=== PATIENT | female | born 1955 | race Two or more races ===

== ENCOUNTER 2018-08-10 18:18 | Inpatient (IN) | payer BC, OTHER ==
[~2018-08-10] VITALS: Ht 157.5 cm; Wt 83.4 kg
[2018-08-10 18:48] LABS: Basophils # (auto) 0 uL; Basophils % (auto) 0.6 % (0.0-2.0); Eosinophils # (auto) 0 uL; Hematocrit 36.9 % (36.0-46.0); Hemoglobin 13.2 g/dL (12.2-16.2); Lymphocytes # (auto) 0.8 uL; Lymphocytes % (auto) 16.6 % (10.0-50.0); Mean Corpuscular Hgb Conc. 35.9 g/dL (32.0-36.0); Mean Corpuscular Volume 83.7 fL (80.0-100.0); Monocytes # (auto) 0.3 uL; Monocytes % (auto) 6.8 % (0.0-12.0); Neutrophils # (auto) 3.5 uL; Platelet Count (auto) 292 10^3/uL (140-450); Red Blood Cells 4.41 10^6/uL (4.0-5.20); Red Cell Distribution Width 13.9 % (11.8-14.3); White Blood Cell 4.6 10^3/uL (4.4-10.8)
[2018-08-10 19:08] LABS: Alanine Aminotransferase 36 U/L (13-56); Albumin 3.7 g/dL (3.4-5.0); Anion Gap 10 (5-15); Aspartate Aminotransferase 42 U/L (15-37); BUN/Creatinine Ratio 15.9; Blood Urea Nitrogen 11 mg/dL (7-18); Calcium 8.3 mg/dL (8.5-10.1); Carbon Dioxide 27 mmol/L (21-32); Chloride 81 mmol/L (98-107); GFR African American > 60 mL/min; GFR Non-African American > 60 mL/min; Glucose 104 mg/dL (74-106); Potassium 3.5 mmol/L (3.5-5.1)
[2018-08-10 19:12] LABS: Alkaline Phosphatase 85 U/L (45-117); Bilirubin, Total 0.5 mg/dL (0.2-1.0); Total Protein 7.9 g/dL (6.4-8.2)
[2018-08-10 19:17] LABS: Sodium 118 mmol/L (136-145)
[2018-08-10 19:18] LABS: Urine Bacteria NONE SEEN /hpf (None Seen); Urine Blood TRACE /uL (Negative); Urine Mucus FEW (None Seen); Urine Specific Gravity 1.021 (1.001-1.035); Urine WBC 1 /hpf (0 - 5)
[2018-08-10] MEDS ORDERED: SODIUM CHLORIDE 0.9% 1,000 ML IV ONE (20:00)
[2018-08-10] MEDS ORDERED: MORPHINE SULFATE 10 MG/ML INJ 1ML SDV IV ONE (20:00)
[2018-08-10] MEDS ORDERED: ONDANSETRON HCL 4 MG/2 ML VIAL IV ONE (20:00)
[2018-08-10] MEDS ORDERED: ACETAMINOPHEN 500 MG TAB PO PRN (20:45)
[2018-08-10] MEDS ORDERED: ONDANSETRON HCL 4 MG/2 ML VIAL IV PRN (20:45)
[2018-08-10] MEDS ORDERED: LEVOFLOXACIN 750MG 150 ML IV ONE (20:45)
[2018-08-10] MEDS ORDERED: MORPHINE SULFATE 10 MG/ML INJ 1ML SDV IV PRN (20:45)
[2018-08-10] MEDS ORDERED: SODIUM CHLORIDE 0.9% 1,000 ML IV SCH (20:45)
[2018-08-10 21:29] VITALS: BP 133/79
[2018-08-10] MEDS: SODIUM CHLORIDE 0.9% 1,000 ML IV SCH (21:30)
[2018-08-10] MEDS ORDERED: SODIUM CHL 3% 500 ML IV ONE (22:45)
--- NOTE | 2018-08-10 23:15 | NUR ---
Telemetry admit from ER ARTURO KAMINSKI admitted to Telemetry unit after SBAR received. Patient oriented to Cristofer swann RN, unit, room 214, bed B, and unit policies regarding patient care and visiting hours. Patient now on continuous telemetry monitoring, tele box #40 and telemetry reading on arrival to unit is SR 78 with BBB. Patient placed on bedside oxygen, weighed by bedscale and encouraged to call if they need something. All questions and concerns addressed, patient verbalized understanding.
[2018-08-10] MEDS: IPRATROPIUM BROM 0.5 MG/2.5ML INH SOL NEB SCH (23:23)
[2018-08-10] MEDS: ALBUTEROL SULF 2.5 MG/0.5ML(0.5%) NEB SOLN NEB SCH (23:23)
[2018-08-11] VITALS (7 sets, daily range): BP systolic 104–127; BP diastolic 56–66
[2018-08-11] MEDS ORDERED: LISI20TA10 PO (01:02)
[2018-08-11] MEDS: SODIUM CHLORIDE 0.9% 1,000 ML IV SCH ×2 (05:30→14:58)
[2018-08-11] MEDS: IPRATROPIUM BROM 0.5 MG/2.5ML INH SOL NEB SCH ×3 (06:06→19:10)
[2018-08-11] MEDS: ALBUTEROL SULF 2.5 MG/0.5ML(0.5%) NEB SOLN NEB SCH ×3 (06:06→19:10)
[2018-08-11 06:44] LABS: Basophils # (auto) 0 uL; Basophils % (auto) 0.8 % (0.0-2.0); Eosinophils # (auto) 0 uL; Hematocrit 35.5 % (36.0-46.0); Hemoglobin 12.6 g/dL (12.2-16.2); Lymphocytes % (auto) 23.5 % (10.0-50.0); Mean Corpuscular Hemoglobin 29.8 pg (28.0-32.0); Mean Corpuscular Hgb Conc. 35.5 g/dL (32.0-36.0); Mean Corpuscular Volume 84.1 fL (80.0-100.0); Monocytes # (auto) 0.3 uL; Neutrophils # (auto) 2.7 uL; Neutrophils % (auto) 67.7 % (37.0-80.0); Nucleated Red Blood Cells % 0.2 %; Platelet Count (auto) 286 10^3/uL (140-450); Red Blood Cells 4.22 10^6/uL (4.0-5.20); Red Cell Distribution Width 13.4 % (11.8-14.3); White Blood Cell 4.1 10^3/uL (4.4-10.8)
[2018-08-11 07:05] LABS: Chloride 90 mmol/L (98-107); Sodium 126 mmol/L (136-145)
[2018-08-11 07:11] LABS: Anion Gap 12 (5-15); BUN/Creatinine Ratio 16.7; Blood Urea Nitrogen 11 mg/dL (7-18); Calcium 7.8 mg/dL (8.5-10.1); Carbon Dioxide 24 mmol/L (21-32); GFR African American > 60 mL/min; GFR Non-African American > 60 mL/min; Glucose 91 mg/dL (74-106)
--- NOTE | 2018-08-11 07:25 | NUR ---
Morning note Report received and bedside handoff completed. Patient observed resting in bed without S/S of distress. Patient oriented to this RN and POC. Patient verbalized understanding to call if needing assistance.
--- NOTE | 2018-08-11 08:12 | NUR ---
Surgical MD called Dr. Lora called this RN to discuss patient's diagnosis and reason for consult. CT Abdomen/Pelvis results read to physician. He stated he would come see her later.
[2018-08-11] MEDS ORDERED: cefTRIAXone 1GM/50ML D5W 50 ML IV SCH (09:00)
[2018-08-11] MEDS ORDERED: AZITHROMYCIN 500MG/ 250ML 250 ML IV SCH (10:00)
[2018-08-11] MEDS: DOXYCYCLINE 100MG/250ML 250 ML IV SCH ×2 (10:28→21:50)
[2018-08-11] MEDS: LISINOPRIL 10 MG TAB PO SCH (10:28)
--- NOTE | 2018-08-11 10:30 | NUR ---
Dr. Ivan Love called and stated he would be seeing the patient to let Dr. Lora know. Page sent to Dr. Lora.
--- NOTE | 2018-08-11 14:15 | NUR ---
Surgical consult complete Dr. Love stated patient has a periumbilical hernia partially able to reinsert. Ice pack and abdominal binder applied for patient. He stated she should follow up outpatient with him and GI due to right upper quadrant pain resolved currently.
--- NOTE | 2018-08-11 14:20 | NUR ---
Rounded Dr. Storm rounded on patient and notified of patients potassium and sodium level. stated he would replace potassium and decrease fluids as low sodium related to pneumonia. Patient can now start diet. Orders observed.
[2018-08-11] MEDS ORDERED: POTASSIUM CHL 20 Meq TABLET PO ONE (14:30)
[2018-08-11] MEDS ORDERED: TEMAZEPAM 15 MG CAP PO PRN (16:30)
[2018-08-11] MEDS: methylPREDNISolone SOD SUCC 40 MG/ML VL IV SCH (18:37)
[2018-08-11] MEDS: BUDESONIDE (INHALATION) 0.5 MG/2 ML NEB NEB SCH (19:10)
[2018-08-12] MEDS: IPRATROPIUM BROM 0.5 MG/2.5ML INH SOL NEB SCH ×3 (00:38→11:43)
[2018-08-12] MEDS: ALBUTEROL SULF 2.5 MG/0.5ML(0.5%) NEB SOLN NEB SCH ×3 (00:38→11:43)
[2018-08-12] MEDS: methylPREDNISolone SOD SUCC 40 MG/ML VL IV SCH ×2 (01:36→06:00)
[2018-08-12] MEDS: SODIUM CHLORIDE 0.9% 1,000 ML IV SCH (03:35)
[2018-08-12 04:00] VITALS: BP 124/73
[2018-08-12 05:40] LABS: Anion Gap 9 (5-15); BUN/Creatinine Ratio 16.7; Blood Urea Nitrogen 10 mg/dL (7-18); Calcium 8.1 mg/dL (8.5-10.1); Carbon Dioxide 23 mmol/L (21-32); Chloride 99 mmol/L (98-107); GFR African American > 60 mL/min; GFR Non-African American > 60 mL/min; Glucose 131 mg/dL (74-106); Magnesium 2.7 mg/dL (1.6-2.6); Potassium 3.8 mmol/L (3.5-5.1); Sodium 131 mmol/L (136-145)
[2018-08-12] MEDS: BUDESONIDE (INHALATION) 0.5 MG/2 ML NEB NEB SCH (06:26)
--- NOTE | 2018-08-12 07:02 | NUR ---
Morning note Report received and bedside handoff completed. Patient observed resting in bed without S/S of distress. Patient reoriented to this RN and POC discussed. Patient stated she is feeling better this morning, but scared to eat because she does not want her stomach to start hurting. She stated it has not been hurting at all. This RN notified her to take it slow and if she feels like any symptoms are starting to back down. Patient verbalized understanding and knows to call if needing assistance.
[2018-08-12 08:30] VITALS: BP 110/55
[2018-08-12] MEDS: DOXYCYCLINE 100MG/250ML 250 ML IV SCH (09:40)
[2018-08-12] MEDS: LISINOPRIL 10 MG TAB PO SCH (09:40)
[2018-08-12 12:30] VITALS: BP 120/59
[2018-08-12 14:27] VITALS: BP 110/55
--- NOTE | 2018-08-12 15:01 | NUR ---
Discharge Discharge instructions reviewed with patient. All questions and concerns addressed. IV discontinued without complication and telemetry returned to [facility]
== END 2018-08-12 15:14 | disposition home or self-care (01) | DRG 394 ==
LOC: ER 18:18 → TELE 21:17 → TELE-CENTR 23:06
PROVIDERS: ADMIT Nurse Practitioner Family; ATTEND Hospitalist
DX: K42.9 Umbilical hernia without obstruction or gangrene (principal); K56.3 Gallstone ileus; E87.1 Hypo-osmolality and hyponatremia; I10 Essential (primary) hypertension; J45.909 Unspecified asthma, uncomplicated; J20.9 Acute bronchitis, unspecified; K76.0 Fatty (change of) liver, not elsewhere classified; K57.30 Diverticulosis of large intestine without perforation or abscess without bleeding; N28.1 Cyst of kidney, acquired; Z88.5 Allergy status to narcotic agent; Z83.3 Family history of diabetes mellitus
CPT/HCPCS: 36415; 71045; 74176; 76705; 80048; 80053; 81001; 83735; 84295; 84484; 85025; 87040; 87804; 93005; 94640; 94761; 96361; 96365; 96375; G0378; J1956; J2405; J3490

== ENCOUNTER 2018-09-26 14:06 | Emergency (ER) | payer OTHER ==
[~2018-09-26] VITALS: Ht 157.5 cm; Wt 74.8 kg
[~2018-09-26 14:06] MED LIST: LISI20TA10 PO
[2018-09-26] MEDS ORDERED: MORPHINE SULFATE 4 MG/ML SYR/VIAL IV ONE (14:45)
[2018-09-26] MEDS ORDERED: ONDANSETRON HCL 4 MG/2 ML VIAL IV ONE (14:45)
[2018-09-26 15:17] LABS: Basophils # (auto) 0.1 uL; Basophils % (auto) 1.1 % (0.0-2.0); Eosinophils # (auto) 0.1 uL; Hematocrit 41.9 % (36.0-46.0); Lymphocytes # (auto) 1.4 uL; Lymphocytes % (auto) 23.1 % (10.0-50.0); Mean Corpuscular Hemoglobin 29.4 pg (28.0-32.0); Mean Corpuscular Hgb Conc. 33.5 g/dL (32.0-36.0); Mean Corpuscular Volume 87.8 fL (80.0-100.0); Monocytes # (auto) 0.5 uL; Monocytes % (auto) 7.6 % (0.0-12.0); Neutrophils % (auto) 67.2 % (37.0-80.0); Nucleated Red Blood Cells % 0.1 %; Platelet Count (auto) 341 10^3/uL (140-450); Red Blood Cells 4.78 10^6/uL (4.0-5.20); Red Cell Distribution Width 14.8 % (11.8-14.3); White Blood Cell 5.9 10^3/uL (4.4-10.8)
[2018-09-26 15:29] LABS: Albumin 4.3 g/dL (3.4-5.0); BUN/Creatinine Ratio 15.3; Calcium 9.5 mg/dL (8.5-10.1); Magnesium 2.4 mg/dL (1.6-2.6)
[2018-09-26 15:33] LABS: Bilirubin, Total 0.3 mg/dL (0.2-1.0)
[2018-09-26 16:25] VITALS: BP 154/87
[2018-09-26 16:54] LABS: Urine Bacteria FEW /hpf (None Seen); Urine Blood Negative /uL (Negative); Urine Mucus FEW (None Seen); Urine Specific Gravity 1.008 (1.001-1.035); Urine WBC 4 /hpf (0 - 5)
== END 2018-09-26 16:31 | disposition home or self-care (01) ==
LOC: ER 14:10
DX: R10.11 Right upper quadrant pain (principal); M54.9 Dorsalgia, unspecified; I10 Essential (primary) hypertension
CPT/HCPCS: 36415; 74176; 80053; 81001; 82150; 83690; 83735; 85025; 94761; 96374; 96375; 99284; J2270; J2405

== ENCOUNTER → 2022-05-02 | Outpatient (CLI) | payer OTHER ==
[~2022-05-02] MED LIST changes: -LISI20TA10 PO; +LISI20TA33 PO
[2022-05-02 09:27] LABS: Basophils # (auto) 0.1 10 ^3/uL (0-0.2); Basophils % (auto) 1.4 % (0.0-2.0); Eosinophils # (auto) 0.1 10 ^3/uL (0-0.8); Eosinophils % (auto) 1.7 % (0.0-7.0); Hematocrit 38.5 % (36.0-46.0); Hemoglobin 12.9 g/dL (12.2-16.2); Lymphocytes # (auto) 1.4 10 ^3/uL (0.4-5.4); Lymphocytes % (auto) 27.8 % (10.0-50.0); Mean Corpuscular Hemoglobin 28.8 pg (28.0-32.0); Mean Corpuscular Hgb Conc. 33.6 g/dL (32.0-36.0); Mean Corpuscular Volume 85.8 fL (80.0-100.0); Monocytes # (auto) 0.4 10 ^3/uL (0-1.3); Monocytes % (auto) 8.7 % (0.0-12.0); Neutrophils # (auto) 3.1 10 ^3/uL (1.6-8.6); Neutrophils % (auto) 60.4 % (37.0-80.0); Red Blood Cells 4.49 10^6/uL (4.0-5.20); Red Cell Distribution Width 13.6 % (11.8-14.3); White Blood Cell 5.2 10^3/uL (4.4-10.8)
[2022-05-02 10:15] LABS: Albumin 3.9 g/dL (3.4-5.0); Calcium 9.7 mg/dL (8.5-10.1); Potassium 4.6 mmol/L (3.5-5.1)
[2022-05-02 10:22] LABS: BUN/Creatinine Ratio 20.6; Bilirubin, Total 0.4 mg/dL (0.2-1.0); Total Protein 7.4 g/dL (6.4-8.2)
== END | disposition home or self-care (01) ==
LOC: LAB 08:43
PROVIDERS: ATTEND Internal Medicine
DX: Z12.11 Encounter for screening for malignant neoplasm of colon (principal); I10 Essential (primary) hypertension; R73.03 Prediabetes
CPT/HCPCS: 36415; 80053; 80061; 82043; 82306; 83036; 85025

== ENCOUNTER → 2022-05-31 | Outpatient (CLI) | payer OTHER | END | disposition home or self-care (01) | LOC: LAB 14:09 | PROVIDERS: ATTEND Internal Medicine | DX: Z12.11 Encounter for screening for malignant neoplasm of colon (principal); I10 Essential (primary) hypertension; R73.03 Prediabetes | CPT/HCPCS: 82270 ==

== ENCOUNTER 2022-08-03 09:47 | Inpatient (IN) | payer OTHER ==
[~2022-08-03] VITALS: Ht 162.6 cm; Wt 77.1 kg
[2022-08-03] MEDS ORDERED: IPRATROPIUM BROM 0.5 MG/2.5ML INH SOL NEB ONE (10:30)
[2022-08-03] MEDS ORDERED: ALBUTEROL SULF 2.5 MG/0.5ML(0.5%) NEB SOLN NEB ONE ×2 (10:30→15:15)
[2022-08-03] MEDS ORDERED: AZITHROMYCIN 500MG/ 250ML 250 ML IV ONE (10:30)
[2022-08-03] MEDS ORDERED: cefTRIAXone 1GM/50ML D5W 50 ML IV ONE (10:30)
[2022-08-03] MEDS ORDERED: ZINC SULFATE 220mg CAP or TAB PO ONE (10:30)
[2022-08-03] MEDS ORDERED: methylPREDNISolone SOD SUCC 125 MG/2 ML VL IV ONE (10:30)
[2022-08-03] MEDS ORDERED: ALBUTEROL MEDNEB 2.5 mg/3ml NEB ONE ×4 (10:31→21:44)
[2022-08-03 10:33] LABS: Basophils # (auto) 0 10 ^3/uL (0-0.2); Basophils % (auto) 0.1 % (0.0-2.0); Eosinophils # (auto) 0 10 ^3/uL (0-0.8); Hematocrit 39.4 % (36.0-46.0); Hemoglobin 13.3 g/dL (12.2-16.2); Lymphocytes # (auto) 1.6 10 ^3/uL (0.4-5.4); Lymphocytes % (auto) 10.5 % (10.0-50.0); Mean Corpuscular Hemoglobin 29.3 pg (28.0-32.0); Mean Corpuscular Hgb Conc. 33.8 g/dL (32.0-36.0); Mean Corpuscular Volume 86.5 fL (80.0-100.0); Monocytes # (auto) 0.5 10 ^3/uL (0-1.3); Monocytes % (auto) 3.1 % (0.0-12.0); Neutrophils # (auto) 12.8 10 ^3/uL (1.6-8.6); Neutrophils % (auto) 86.3 % (37.0-80.0); Nucleated Red Blood Cells % 0.2 %; Red Blood Cells 4.56 10^6/uL (4.0-5.20); Red Cell Distribution Width 13.9 % (11.8-14.3); White Blood Cell 14.8 10^3/uL (4.4-10.8)
[2022-08-03 10:46] LABS: Albumin 4.1 g/dL (3.4-5.0); Calcium 9.4 mg/dL (8.5-10.1); Potassium 4.4 mmol/L (3.5-5.1)
[2022-08-03 10:50] LABS: BUN/Creatinine Ratio 23.2; Bilirubin, Total 0.5 mg/dL (0.2-1.0); Total Protein 7.5 g/dL (6.4-8.2)
[2022-08-03] MEDS ORDERED: ONDANSETRON HCL 4 MG/2 ML VIAL IV ONE (13:15)
[2022-08-03 13:43] LABS: Urine Bacteria NONE SEEN /hpf (None Seen); Urine Blood Negative /uL (Negative); Urine Mucus FEW (None Seen); Urine WBC 3 /hpf (0 - 5)
[2022-08-03] MEDS ORDERED: ONDANSETRON HCL 4 MG/2 ML VIAL IV PRN (14:15)
[2022-08-03] MEDS ORDERED: MAALOX PLUS or MAALOX 30 ML PO PRN (14:15)
[2022-08-03] MEDS ORDERED: DOCUSATE SOD 100 MG CAP PO PRN (14:15)
[2022-08-03] MEDS ORDERED: TEMAZEPAM 15 MG CAP PO PRN (14:15)
[2022-08-03] MEDS ORDERED: LORazepam 0.5 MG TAB PO PRN (14:15)
[2022-08-03] MEDS ORDERED: ACETAMINOPHEN 325 MG TAB PO PRN (14:15)
[2022-08-03] MEDS ORDERED: MAGNESIUM SULFATE 1GM/100ML 100 ML IV ONE (15:15)
[2022-08-03] MEDS: SODIUM CHLORIDE 0.9% 1,000 ML IV SCH (15:35)
[2022-08-03] MEDS: IPRATROPIUM BROM 0.5 MG/2.5ML INH SOL NEB SCH ×2 (21:25→23:52)
[2022-08-03] MEDS: ALBUTEROL SULF 2.5 MG/0.5ML(0.5%) NEB SOLN NEB SCH ×2 (21:25→23:52)
[2022-08-03] MEDS: methylPREDNISolone SOD SUCC 40 MG/ML VL IV SCH (21:44)
[2022-08-03 23:45] VITALS: BP 141/80
[2022-08-04] VITALS (8 sets, daily range): BP systolic 141–165; BP diastolic 73–84
[2022-08-04] MEDS ORDERED: BIOT10004 PO (01:26)
[2022-08-04] MEDS ORDERED: MONT-8 PO (01:26)
[2022-08-04] MEDS ORDERED: CETI-83 PO (01:26)
[2022-08-04] MEDS ORDERED: FLUT0.05 NAS (01:26)
[2022-08-04] MEDS ORDERED: CYAN1TAB14 PO (01:26)
[2022-08-04] MEDS ORDERED: ALBU2TAB4 INH (01:26)
[2022-08-04] MEDS: SODIUM CHLORIDE 0.9% 1,000 ML IV SCH ×2 (04:34→18:31)
[2022-08-04 05:48] LABS: Basophils # (auto) 0 10 ^3/uL (0-0.2); Eosinophils # (auto) 0 10 ^3/uL (0-0.8); Hematocrit 36.4 % (36.0-46.0); Hemoglobin 12.3 g/dL (12.2-16.2); Lymphocytes # (auto) 1.5 10 ^3/uL (0.4-5.4); Mean Corpuscular Hemoglobin 29.1 pg (28.0-32.0); Mean Corpuscular Hgb Conc. 33.8 g/dL (32.0-36.0); Mean Corpuscular Volume 86.1 fL (80.0-100.0); Monocytes # (auto) 0.3 10 ^3/uL (0-1.3); Monocytes % (auto) 3.1 % (0.0-12.0); Neutrophils # (auto) 7.5 10 ^3/uL (1.6-8.6); Neutrophils % (auto) 80.9 % (37.0-80.0); Red Blood Cells 4.22 10^6/uL (4.0-5.20); Red Cell Distribution Width 14.1 % (11.8-14.3); White Blood Cell 9.3 10^3/uL (4.4-10.8)
[2022-08-04] MEDS ORDERED: ALBUTEROL MEDNEB 2.5 mg/3ml NEB ONE ×5 (06:02→21:37)
[2022-08-04 06:05] LABS: Potassium 4.7 mmol/L (3.5-5.1)
[2022-08-04 06:10] LABS: BUN/Creatinine Ratio 32.2; Calcium 9.1 mg/dL (8.5-10.1)
[2022-08-04] MEDS: ALBUTEROL SULF 2.5 MG/0.5ML(0.5%) NEB SOLN NEB SCH ×5 (06:22→22:06)
[2022-08-04] MEDS: IPRATROPIUM BROM 0.5 MG/2.5ML INH SOL NEB SCH ×5 (06:22→22:06)
[2022-08-04] MEDS: cefTRIAXone 1GM/50ML D5W 50 ML IV SCH (09:41)
[2022-08-04] MEDS: methylPREDNISolone SOD SUCC 40 MG/ML VL IV SCH ×2 (09:41→20:19)
[2022-08-04] MEDS: AZITHROMYCIN 500MG/ 250ML 250 ML IV SCH (10:00)
[2022-08-04] MEDS ORDERED: guaiFENesin-CODEINE Liq 5 ML UD PO PRN (12:00)
[2022-08-04] MEDS ORDERED: LISINOPRIL 10 MG TAB PO ONE ×2 (12:00→17:00)
[2022-08-04] MEDS ORDERED: guaiFENesin 200 MG/10 ML UD PO PRN (19:45)
[2022-08-04] MEDS: BUDESONIDE (INHALATION) 0.5 MG/2 ML NEB NEB SCH (22:07)
[2022-08-05] VITALS (7 sets, daily range): BP systolic 129–168; BP diastolic 64–84
[2022-08-05] MEDS ORDERED: ALBUTEROL MEDNEB 2.5 mg/3ml NEB ONE ×5 (06:01→21:48)
[2022-08-05] MEDS: ALBUTEROL SULF 2.5 MG/0.5ML(0.5%) NEB SOLN NEB SCH ×5 (06:38→22:30)
[2022-08-05] MEDS: IPRATROPIUM BROM 0.5 MG/2.5ML INH SOL NEB SCH ×5 (06:38→22:30)
[2022-08-05] MEDS: BUDESONIDE (INHALATION) 0.5 MG/2 ML NEB NEB SCH ×2 (06:39→22:30)
[2022-08-05] MEDS ORDERED: LISINOPRIL 10 MG TAB PO SCH (10:00)
[2022-08-05] MEDS: AZITHROMYCIN 500MG/ 250ML 250 ML IV SCH (10:00)
[2022-08-05] MEDS: cefTRIAXone 1GM/50ML D5W 50 ML IV SCH (10:25)
[2022-08-05] MEDS: methylPREDNISolone SOD SUCC 40 MG/ML VL IV SCH ×2 (10:25→21:52)
[2022-08-05] MEDS: CHOLECALCIFEROL (VITD3) 2,000 UNIT CAP/TAB PO SCH (10:25)
[2022-08-05] MEDS: ZINC SULFATE 220mg CAP or TAB PO SCH (10:25)
[2022-08-05] MEDS: ASCORBIC ACID 500 MG TAB PO SCH (10:26)
[2022-08-05] MEDS: LISINOPRIL 10 MG TAB PO SCH (10:27)
[2022-08-05] MEDS: SODIUM CHLORIDE 0.9% 1,000 ML IV SCH (10:28)
[2022-08-05] MEDS ORDERED: METOPROLOL TARTRATE 50 MG TAB PO ONE (13:30)
[2022-08-05] MEDS: METOPROLOL TARTRATE 50 MG TAB PO SCH (21:53)
[2022-08-05] MEDS ORDERED: ZOLPIDEM TARTRATE 5 MG TAB PO PRN (22:00)
[2022-08-06 04:41] VITALS: BP 165/80
[2022-08-06 06:15] VITALS: BP 151/71
[2022-08-06] MEDS ORDERED: ALBUTEROL MEDNEB 2.5 mg/3ml NEB ONE ×3 (06:49→11:15)
[2022-08-06] MEDS: IPRATROPIUM BROM 0.5 MG/2.5ML INH SOL NEB SCH ×2 (07:05→11:19)
[2022-08-06] MEDS: ALBUTEROL SULF 2.5 MG/0.5ML(0.5%) NEB SOLN NEB SCH ×2 (07:05→11:18)
[2022-08-06 08:19] VITALS: BP 160/80
[2022-08-06] MEDS: cefTRIAXone 1GM/50ML D5W 50 ML IV SCH (09:22)
[2022-08-06] MEDS: methylPREDNISolone SOD SUCC 40 MG/ML VL IV SCH (09:22)
[2022-08-06] MEDS: ASCORBIC ACID 500 MG TAB PO SCH (09:23)
[2022-08-06] MEDS: ZINC SULFATE 220mg CAP or TAB PO SCH (09:23)
[2022-08-06] MEDS: CHOLECALCIFEROL (VITD3) 2,000 UNIT CAP/TAB PO SCH (09:23)
[2022-08-06] MEDS: LISINOPRIL 10 MG TAB PO SCH (09:24)
[2022-08-06] MEDS: METOPROLOL TARTRATE 50 MG TAB PO SCH (09:24)
[2022-08-06] MEDS: AZITHROMYCIN 500MG/ 250ML 250 ML IV SCH (10:00)
[2022-08-06] MEDS ORDERED: AZIT500T66 PO (10:33)
[2022-08-06] MEDS ORDERED: ZINC220C10 PO (10:33)
[2022-08-06] MEDS ORDERED: CHOL20009 PO (10:33)
[2022-08-06] MEDS ORDERED: METO-158 PO (10:33)
[2022-08-06] MEDS ORDERED: ASCO500C49 PO (10:33)
[2022-08-06] MEDS ORDERED: PRED20TA2 PO (10:35)
[2022-08-06] MEDS: BUDESONIDE (INHALATION) 0.5 MG/2 ML NEB NEB SCH (11:18)
[2022-08-06 12:21] VITALS: BP_SYST 164; BP_SYST 166; BP_DIAS 79; BP_DIAS 85
[2022-08-06 13:08] VITALS: BP 166/85
== END 2022-08-06 14:50 | disposition home or self-care (01) | DRG 193 ==
LOC: ER 09:47 → EEVIPCON 09:47 → TELE 14:21 → TELE-EAST 22:23
PROVIDERS: ADMIT Hospitalist; ATTEND Family Medicine
DX: J18.9 Pneumonia, unspecified organism (principal); J96.01 Acute respiratory failure with hypoxia; N39.0 Urinary tract infection, site not specified; E86.0 Dehydration; G47.00 Insomnia, unspecified; I10 Essential (primary) hypertension; E66.9 Obesity, unspecified; J45.909 Unspecified asthma, uncomplicated; Z20.822 Contact with and (suspected) exposure to COVID-19; Z86.16 Personal history of COVID-19; Z83.3 Family history of diabetes mellitus; Z68.29 Body mass index [BMI] 29.0-29.9, adult; Z88.5 Allergy status to narcotic agent; Z79.899 Other long term (current) drug therapy
CPT/HCPCS: 36415; 71045; 80048; 80053; 81001; 82728; 83615; 84484; 85025; 85379; 86141; 87086; 87426; 93005; 94003; 94640; 96365; 96367; 96375; G0378; J0696; J2405

== ENCOUNTER → 2022-08-22 | Outpatient (CLI) | payer OTHER ==
[~2022-08-22] MED LIST changes: +ALBU2TAB4 INH; +ASCO500C49 PO; +AZIT500T66 PO; +BIOT10004 PO; +CETI-83 PO; +CHOL20009 PO; +CYAN1TAB14 PO; +FLUT0.05 NAS; +METO-158 PO; +MONT-8 PO; +PRED20TA2 PO; +ZINC220C10 PO
[2022-08-22 16:12] LABS: BUN/Creatinine Ratio 17.1; Calcium 9.6 mg/dL (8.5-10.1); Potassium 3.8 mmol/L (3.5-5.1)
== END | disposition home or self-care (01) ==
LOC: LAB 15:26
PROVIDERS: ATTEND Internal Medicine
DX: R73.03 Prediabetes (principal); M54.50 Low back pain, unspecified
CPT/HCPCS: 36415; 80048; 83036

== ENCOUNTER → 2022-09-05 | Outpatient (CLI) | payer OTHER | END | disposition home or self-care (01) | LOC: LAB 11:45 | PROVIDERS: ATTEND Internal Medicine | DX: E55.9 Vitamin D deficiency, unspecified (principal) | CPT/HCPCS: 36415; 82607; 84550; 85652; 86431 ==

== ENCOUNTER 2022-09-28 08:06 | Emergency (ER) | payer OTHER ==
[~2022-09-28] VITALS: Ht 157.5 cm; Wt 74.0 kg
[2022-09-28 08:31] VITALS: BP 175/81
[2022-09-28] MEDS ORDERED: ALBUTEROL SULF 2.5 MG/0.5ML(0.5%) NEB SOLN NEB ONE (09:00)
[2022-09-28] MEDS ORDERED: IPRATROPIUM BROM 0.5 MG/2.5ML INH SOL NEB ONE (09:00)
[2022-09-28] MEDS ORDERED: methylPREDNISolone SOD SUCC 125 MG/2 ML VL IM ONE (09:00)
[2022-09-28] MEDS ORDERED: cefTRIAXone SOD 1,000 MG VL IM ONE (09:00)
[2022-09-28] MEDS ORDERED: PROM1SOL4 PO (09:30)
[2022-09-28] MEDS ORDERED: PRED20TA2 PO (09:30)
[2022-09-28] MEDS ORDERED: LEVO500T31 PO (09:30)
== END 2022-09-28 09:39 | disposition home or self-care (01) ==
LOC: ER 08:06
DX: J45.909 Unspecified asthma, uncomplicated (principal); J02.9 Acute pharyngitis, unspecified; I10 Essential (primary) hypertension
CPT/HCPCS: 71046; 94640; 96372; 99284; J0696; J2930; J7644

== ENCOUNTER → 2023-01-09 | Outpatient (CLI) | payer OTHER ==
[~2023-01-09] MED LIST changes: +ALBU2TAB11 INH; -ALBU2TAB4 INH; +LEVO500T31 PO; -LISI20TA33 PO; +LISI20TA60 PO; +PROM1SOL4 PO
[2023-01-09 09:15] LABS: Cholesterol 179 mg/dL (< 200); HDL Cholesterol 46 mg/dL (40-59); LDL Cholesterol 95 mg/dL (< 100); Triglycerides 291 mg/dL (< 150)
== END | disposition home or self-care (01) ==
LOC: LAB 07:40
PROVIDERS: ATTEND Internal Medicine
DX: Z00.00 Encounter for general adult medical examination without abnormal findings (principal); E78.5 Hyperlipidemia, unspecified; R73.03 Prediabetes
CPT/HCPCS: 36415; 80061; 82043; 83036

== ENCOUNTER → 2023-02-04 | Outpatient (CLI) | payer OTHER | END | disposition home or self-care (01) | LOC: LAB 09:42 | PROVIDERS: ATTEND Internal Medicine | DX: R10.9 Unspecified abdominal pain (principal) | CPT/HCPCS: 36415; 82565; 84520 ==

== ENCOUNTER → 2023-03-12 | Day surgery (SDC) | payer OTHER ==
[2023-03-08 10:26] LABS: Basophils # (auto) 0.1 10 ^3/uL (0-0.2); Basophils % (auto) 1.5 % (0.0-2.0); Eosinophils # (auto) 0.1 10 ^3/uL (0-0.8); Eosinophils % (auto) 2.5 % (0.0-7.0); Hematocrit 38.6 % (36.0-46.0); Lymphocytes # (auto) 1.5 10 ^3/uL (0.4-5.4); Lymphocytes % (auto) 26.9 % (10.0-50.0); Mean Corpuscular Hemoglobin 28.8 pg (28.0-32.0); Mean Corpuscular Hgb Conc. 33.7 g/dL (32.0-36.0); Mean Corpuscular Volume 85.6 fL (80.0-100.0); Monocytes # (auto) 0.6 10 ^3/uL (0-1.3); Monocytes % (auto) 9.8 % (0.0-12.0); Neutrophils # (auto) 3.4 10 ^3/uL (1.6-8.6); Neutrophils % (auto) 59.3 % (37.0-80.0); Nucleated Red Blood Cells % 0.1 %; Red Blood Cells 4.51 10^6/uL (4.0-5.20); Red Cell Distribution Width 14.4 % (11.8-14.3); White Blood Cell 5.7 10^3/uL (4.4-10.8)
[2023-03-08 11:24] LABS: Albumin 3.7 g/dL (3.4-5.0); BUN/Creatinine Ratio 16.2 (10.0-20.0); Calcium 9.3 mg/dL (8.5-10.1); Potassium 3.8 mmol/L (3.5-5.1)
[2023-03-08 11:26] LABS: Bilirubin, Total 0.3 mg/dL (0.2-1.0); Total Protein 7.4 g/dL (6.4-8.2)
[2023-03-08 11:41] LABS: INR 0.98 (0.9-1.15); Partial Thromboplastin Time 29.6 SEC (24.5-34.5); Prothrombin Time 10.3 sec (9.3-11.8)
[~2023-03-12] VITALS: Ht 157.5 cm; Wt 74.8 kg
[~2023-03-12] MED LIST changes: -AZIT500T66 PO; -LEVO500T31 PO; +LIDOCAINE VISCOUS 2% 15ML UD ONE; -METO-158 PO; -PRED20TA2 PO; +SODIUM CHLORIDE LOCK 10 ML ONE
[2023-03-12 10:53] VITALS: O2SAT 97
[2023-03-12] MEDS: fentaNYL CITRATE 100 MCG/2 ML VL ONE ×2 (10:57→11:05)
[2023-03-12] MEDS: MIDAZOLAM HCL 5 MG/ML-1ML VIAL ONE ×2 (10:57→11:01)
[2023-03-12] MEDS: diphenhdrAMINE HCL 50 MG/1 ML VL ONE ×2 (10:57→11:00)
[2023-03-12 11:13] VITALS: TEMP 97.1; O2SAT 97
[2023-03-12 12:10] VITALS: BP 113/64; PULSE 66; RESP 18; O2SAT 94
== END | disposition home or self-care (01) ==
LOC: GI 09:26
PROVIDERS: ATTEND Internal Medicine Gastroenterology
DX: R13.10 Dysphagia, unspecified (principal); K21.00 Gastro-esophageal reflux disease with esophagitis, without bleeding; K44.9 Diaphragmatic hernia without obstruction or gangrene; K31.7 Polyp of stomach and duodenum; K29.90 Gastroduodenitis, unspecified, without bleeding
CPT/HCPCS: 36415; 43239; 43450; 80053; 85025; 85610; 85730; J1200; J2250; J3010; J7030

== ENCOUNTER → 2023-04-03 | Outpatient (CLI) | payer OTHER ==
[~2023-04-03] MED LIST changes: -LIDOCAINE VISCOUS 2% 15ML UD ONE; -SODIUM CHLORIDE LOCK 10 ML ONE
[2023-04-03 09:10] LABS: Triglycerides 230 mg/dL (< 150)
[2023-04-03 09:11] LABS: LDL Cholesterol 105 mg/dL (< 100)
[2023-04-03 09:13] LABS: Cholesterol 183 mg/dL (< 200); HDL Cholesterol 40 mg/dL (40-59)
[2023-04-03 09:23] LABS: Creatinine, Urine 77.43 mg/dL (30.0-125.0)
[2023-04-03 09:25] LABS: Micro Albumin < 3.0 mg/L (<30.0)
== END | disposition home or self-care (01) ==
LOC: LAB 07:53
PROVIDERS: ATTEND Internal Medicine
DX: E78.5 Hyperlipidemia, unspecified (principal); R73.03 Prediabetes
CPT/HCPCS: 36415; 80061; 82043; 82570

== ENCOUNTER 2023-05-31 09:25 | Inpatient (IN) | payer OTHER ==
[~2023-05-31] VITALS: Ht 157.5 cm; Wt 77.8 kg
[2023-05-31] VITALS (7 sets, daily range): BP systolic 130–134; BP diastolic 71–72; PULSE 94–112; RESP 16–22; TEMP 98.1–98.9; O2SAT 95–98
[2023-05-31] MEDS ORDERED: MORPHINE SULFATE 4 MG/ML SYR/VIAL IV ONE (10:30)
[2023-05-31] MEDS ORDERED: ONDANSETRON HCL 4 MG/2 ML VIAL IV ONE (10:30)
[2023-05-31] MEDS ORDERED: SODIUM CHLORIDE 0.9% 1,000 ML IV ONE ×2 (10:30)
[2023-05-31] MEDS ORDERED: metroNIDAZOLE 500MG/100ML 100 ML IV ONE (10:45)
[2023-05-31] MEDS ORDERED: cefTRIAXone 1GM/50ML D5W 50 ML IV ONE (10:45)
[2023-05-31 11:10] LABS: Basophils # (auto) 0.1 10 ^3/uL (0-0.2); Basophils % (auto) 0.5 % (0.0-2.0); Eosinophils # (auto) 0 10 ^3/uL (0-0.8); Eosinophils % (auto) 0.3 % (0.0-7.0); Hematocrit 35.8 % (36.0-46.0); Hemoglobin 12.2 g/dL (12.2-16.2); Lymphocytes # (auto) 1.3 10 ^3/uL (0.4-5.4); Lymphocytes % (auto) 9.6 % (10.0-50.0); Mean Corpuscular Hemoglobin 29.5 pg (28.0-32.0); Mean Corpuscular Hgb Conc. 34.2 g/dL (32.0-36.0); Mean Corpuscular Volume 86.1 fL (80.0-100.0); Monocytes # (auto) 0.7 10 ^3/uL (0-1.3); Neutrophils # (auto) 11.3 10 ^3/uL (1.6-8.6); Neutrophils % (auto) 84.6 % (37.0-80.0); Red Blood Cells 4.16 10^6/uL (4.0-5.20); Red Cell Distribution Width 14.6 % (11.8-14.3); White Blood Cell 13.3 10^3/uL (4.4-10.8)
[2023-05-31 11:26] LABS: Alanine Aminotransferase 13 U/L (7-40); Albumin 4.8 g/dL (3.2-4.8); Alkaline Phosphatase 88 U/L (46-116); Anion Gap 9 (5-15); Aspartate Aminotransferase 13 U/L (13-40); BUN/Creatinine Ratio 11.5 (10.0-20.0); Bilirubin, Total 0.7 mg/dL (0.2-1.0); Blood Urea Nitrogen 7 mg/dL (9-23); Calcium 9.7 mg/dL (8.5-10.1); Carbon Dioxide 22 mmol/L (20-30); Chloride 98 mmol/L (98-107); Glucose 94 mg/dL (74-106); Potassium 3.9 mmol/L (3.5-5.1); Sodium 129 mmol/L (136-145); Total Protein 7.5 g/dL (5.7-8.2)
[2023-05-31] MEDS ORDERED: HYDROmorphone HCL 2 MG/ML VL/or syr IV ONE (12:00)
[2023-05-31 12:13] LABS: Urine Bacteria NONE SEEN /hpf (None Seen); Urine Blood TRACE /uL (Negative); Urine Clarity Clear (Clear); Urine Color Yellow (Yellow); Urine Protein, UAD TRACE (Negative); Urine Specific Gravity 1.017 (1.001-1.035); Urine Urobilinogen Normal (Negative); Urine WBC 1 /hpf (0 - 5); Urine pH 6.5 (5.0-8.0)
[2023-05-31] MEDS ORDERED: NITROGLYCERIN 0.4 MG SL TAB SL PRN (12:30)
[2023-05-31] MEDS ORDERED: MORPHINE SULFATE INJ 2 MG/ml SYRG IV PRN (12:30)
[2023-05-31 12:38] LABS: INR 1.08 (0.9-1.15); Partial Thromboplastin Time 36.2 SEC (24.5-34.5); Prothrombin Time 11.3 sec (9.3-11.8)
[2023-05-31] MEDS ORDERED: SODIUM CHLORIDE 0.9% 1,000 ML IV SCH (12:45)
[2023-05-31] MEDS ORDERED: ALBUTEROL MEDNEB 2.5 mg/3ml NEB NEB PRN (13:30)
[2023-05-31] MEDS: LISINOPRIL 5 MG TAB PO SCH (14:05)
[2023-05-31] MEDS ORDERED: LORazepam 2MG/ML-1ML VIAL IV ONE (14:30)
[2023-05-31] MEDS: ONDANSETRON HCL 4 MG/2 ML VIAL IV PRN (18:40)
[2023-05-31] MEDS: MORPHINE SULFATE INJ 2 MG/ml SYRG IV PRN (18:42)
[2023-05-31] MEDS: PIPERACILLIN-TAZOB 3.375GM 100 ML IV SCH (18:42)
[2023-05-31] MEDS: SODIUM CHLORIDE 0.9% 1,000 ML IV SCH (20:45)
[2023-05-31] MEDS ORDERED: SODIUM CHLORIDE 0.9% 500 ML IV ONE (20:45)
[2023-05-31] MEDS: MONTELUKAST SODIUM 10 MG TAB PO SCH (21:49)
[2023-05-31] MEDS: LORATADINE 10 MG TAB PO SCH (21:49)
[2023-06-01] VITALS (13 sets, daily range): BP systolic 126–147; BP diastolic 74–80; PULSE 82–104; RESP 14–20; TEMP 98.3–98.4; O2SAT 93–96
[2023-06-01] MEDS: ONDANSETRON HCL 4 MG/2 ML VIAL IV PRN ×4 (02:03→16:27)
[2023-06-01] MEDS: MORPHINE SULFATE INJ 2 MG/ml SYRG IV PRN (02:40)
[2023-06-01] MEDS ORDERED: PIPERACILLIN-TAZOB 3.375GM 100 ML IV SCH (05:00)
[2023-06-01] MEDS: SODIUM CHLORIDE 0.9% 1,000 ML IV SCH ×2 (05:41→16:28)
[2023-06-01] MEDS: PIPERACILLIN-TAZOB 3.375GM 100 ML IV SCH ×4 (05:42→17:42)
[2023-06-01 06:09] LABS: Basophils # (auto) 0 10 ^3/uL (0-0.2); Basophils % (auto) 0.2 % (0.0-2.0); Eosinophils # (auto) 0 10 ^3/uL (0-0.8); Eosinophils % (auto) 0.2 % (0.0-7.0); Hematocrit 35.7 % (36.0-46.0); Hemoglobin 12.3 g/dL (12.2-16.2); Lymphocytes # (auto) 0.8 10 ^3/uL (0.4-5.4); Mean Corpuscular Hemoglobin 29.8 pg (28.0-32.0); Mean Corpuscular Hgb Conc. 34.5 g/dL (32.0-36.0); Mean Corpuscular Volume 86.4 fL (80.0-100.0); Monocytes # (auto) 0.6 10 ^3/uL (0-1.3); Monocytes % (auto) 4.7 % (0.0-12.0); Neutrophils % (auto) 88.9 % (37.0-80.0); Red Blood Cells 4.13 10^6/uL (4.0-5.20); Red Cell Distribution Width 14.7 % (11.8-14.3); White Blood Cell 13.5 10^3/uL (4.4-10.8)
[2023-06-01 06:16] LABS: Chloride 99 mmol/L (98-107); Potassium 3.7 mmol/L (3.5-5.1); Sodium 132 mmol/L (136-145)
[2023-06-01 06:17] LABS: Anion Gap 9 (5-15); Calcium 9.1 mg/dL (8.7-10.4); Carbon Dioxide 24 mmol/L (20-30)
[2023-06-01 06:22] LABS: BUN/Creatinine Ratio 14.3 (10.0-20.0); Blood Urea Nitrogen 10 mg/dL (9-23); Glucose 110 mg/dL (74-106)
[2023-06-01] MEDS: LISINOPRIL 5 MG TAB PO SCH (08:56)
[2023-06-01] MEDS ORDERED: PROMETHAZINE HCL 25 MG/ML 1ML IV PRN (11:45)
[2023-06-01] MEDS: LORATADINE 10 MG TAB PO SCH (22:00)
[2023-06-01] MEDS: MONTELUKAST SODIUM 10 MG TAB PO SCH (22:00)
[2023-06-02] VITALS (11 sets, daily range): BP systolic 140–155; BP diastolic 66–73; PULSE 80–104; RESP 14–18; TEMP 97.5–98.7; O2SAT 92–95
[2023-06-02] MEDS: PIPERACILLIN-TAZOB 3.375GM 100 ML IV SCH ×5 (00:20→23:49)
[2023-06-02] MEDS: SODIUM CHLORIDE 0.9% 1,000 ML IV SCH ×3 (03:47→23:48)
[2023-06-02 05:32] LABS: Basophils # (auto) 0 10 ^3/uL (0-0.2); Basophils % (auto) 0.4 % (0.0-2.0); Eosinophils # (auto) 0.3 10 ^3/uL (0-0.8); Eosinophils % (auto) 3.1 % (0.0-7.0); Hematocrit 37.5 % (36.0-46.0); Hemoglobin 12.6 g/dL (12.2-16.2); Lymphocytes # (auto) 1.5 10 ^3/uL (0.4-5.4); Lymphocytes % (auto) 15.8 % (10.0-50.0); Mean Corpuscular Hgb Conc. 33.6 g/dL (32.0-36.0); Mean Corpuscular Volume 86.4 fL (80.0-100.0); Monocytes # (auto) 0.5 10 ^3/uL (0-1.3); Monocytes % (auto) 5.7 % (0.0-12.0); Neutrophils # (auto) 7.2 10 ^3/uL (1.6-8.6); Red Blood Cells 4.34 10^6/uL (4.0-5.20); Red Cell Distribution Width 14.7 % (11.8-14.3); White Blood Cell 9.5 10^3/uL (4.4-10.8)
[2023-06-02 06:24] LABS: Alanine Aminotransferase 10 U/L (7-40); Alkaline Phosphatase 86 U/L (46-116); Anion Gap 8 (5-15); BUN/Creatinine Ratio 19.2 (10.0-20.0); Blood Urea Nitrogen 14 mg/dL (9-23); Carbon Dioxide 26 mmol/L (20-30); Chloride 102 mmol/L (98-107); Glucose 98 mg/dL (74-106); Potassium 3.4 mmol/L (3.5-5.1); Sodium 136 mmol/L (136-145)
[2023-06-02 06:25] LABS: Albumin 4.3 g/dL (3.2-4.8); Aspartate Aminotransferase 10 U/L (13-40); Bilirubin, Total 0.5 mg/dL (0.2-1.0); Total Protein 6.6 g/dL (5.7-8.2)
[2023-06-02] MEDS: LISINOPRIL 5 MG TAB PO SCH (07:12)
[2023-06-02] MEDS ORDERED: POTASSIUM CHL 20MEQ/100ML 100 ML IV ONE (09:00)
[2023-06-02] MEDS: ONDANSETRON HCL 4 MG/2 ML VIAL IV PRN (13:54)
[2023-06-02] MEDS: hydrALAZINE HCL 20 MG/ML VL IV PRN (16:40)
[2023-06-02] MEDS: MONTELUKAST SODIUM 10 MG TAB PO SCH (22:00)
[2023-06-02] MEDS: LORATADINE 10 MG TAB PO SCH (22:00)
[2023-06-03] VITALS (9 sets, daily range): BP systolic 152–157; BP diastolic 67–81; PULSE 80–87; RESP 14–20; TEMP 95.8–98.3; O2SAT 94–95
[2023-06-03] MEDS: PIPERACILLIN-TAZOB 3.375GM 100 ML IV SCH ×3 (05:17→18:36)
[2023-06-03 07:03] LABS: Alanine Aminotransferase 15 U/L (7-40); Albumin 4.6 g/dL (3.2-4.8); Alkaline Phosphatase 98 U/L (46-116); Anion Gap 9 (5-15); Aspartate Aminotransferase 14 U/L (13-40); BUN/Creatinine Ratio 15.9 (10.0-20.0); Bilirubin, Total 0.6 mg/dL (0.2-1.0); Blood Urea Nitrogen 11 mg/dL (9-23); Calcium 9.5 mg/dL (8.7-10.4); Carbon Dioxide 27 mmol/L (20-30); Chloride 104 mmol/L (98-107); Glucose 79 mg/dL (74-106); Potassium 3.7 mmol/L (3.5-5.1); Sodium 140 mmol/L (136-145); Total Protein 7.1 g/dL (5.7-8.2)
[2023-06-03 07:04] LABS: Lymphocytes # (auto) 1.4 10 ^3/uL (0.4-5.4); Monocytes # (auto) 0.7 10 ^3/uL (0-1.3)
[2023-06-03 07:07] LABS: Basophils # (auto) 0.1 10 ^3/uL (0-0.2); Basophils % (auto) 0.8 % (0.0-2.0); Eosinophils # (auto) 0.3 10 ^3/uL (0-0.8); Eosinophils % (auto) 3.4 % (0.0-7.0); Hematocrit 36.9 % (36.0-46.0); Hemoglobin 12.4 g/dL (12.2-16.2); Mean Corpuscular Hemoglobin 29.4 pg (28.0-32.0); Mean Corpuscular Hgb Conc. 33.6 g/dL (32.0-36.0); Mean Corpuscular Volume 87.6 fL (80.0-100.0); Monocytes % (auto) 8.9 % (0.0-12.0); Neutrophils # (auto) 5.7 10 ^3/uL (1.6-8.6); Neutrophils % (auto) 69.9 % (37.0-80.0); Red Blood Cells 4.21 10^6/uL (4.0-5.20); Red Cell Distribution Width 14.5 % (11.8-14.3); White Blood Cell 8.1 10^3/uL (4.4-10.8)
[2023-06-03] MEDS: SODIUM CHLORIDE 0.9% 1,000 ML IV SCH (08:45)
[2023-06-03] MEDS: LISINOPRIL 5 MG TAB PO SCH (10:10)
[2023-06-03] MEDS: MONTELUKAST SODIUM 10 MG TAB PO SCH (21:53)
[2023-06-03] MEDS: LORATADINE 10 MG TAB PO SCH (21:57)
[2023-06-04] VITALS (7 sets, daily range): BP systolic 158–169; BP diastolic 75–85; PULSE 81–95; RESP 17–18; TEMP 97.9–98.3; O2SAT 92–95
[2023-06-04] MEDS: PIPERACILLIN-TAZOB 3.375GM 100 ML IV SCH ×3 (00:54→12:14)
[2023-06-04 06:16] LABS: Basophils # (auto) 0 10 ^3/uL (0-0.2); Basophils % (auto) 0.5 % (0.0-2.0); Eosinophils # (auto) 0.2 10 ^3/uL (0-0.8); Eosinophils % (auto) 1.7 % (0.0-7.0); Hematocrit 33.9 % (36.0-46.0); Hemoglobin 11.6 g/dL (12.2-16.2); Lymphocytes # (auto) 1.1 10 ^3/uL (0.4-5.4); Mean Corpuscular Hemoglobin 29.4 pg (28.0-32.0); Mean Corpuscular Volume 86.4 fL (80.0-100.0); Monocytes # (auto) 0.7 10 ^3/uL (0-1.3); Monocytes % (auto) 7.5 % (0.0-12.0); Neutrophils # (auto) 7.7 10 ^3/uL (1.6-8.6); Neutrophils % (auto) 79.3 % (37.0-80.0); Red Blood Cells 3.93 10^6/uL (4.0-5.20); Red Cell Distribution Width 14.3 % (11.8-14.3); White Blood Cell 9.7 10^3/uL (4.4-10.8)
[2023-06-04 06:39] LABS: Calcium 9.2 mg/dL (8.7-10.4); Chloride 103 mmol/L (98-107); Potassium 3.5 mmol/L (3.5-5.1); Sodium 136 mmol/L (136-145)
[2023-06-04 06:40] LABS: Anion Gap 9 (5-15); Carbon Dioxide 24 mmol/L (20-30)
[2023-06-04 06:45] LABS: BUN/Creatinine Ratio 19.6 (10.0-20.0); Blood Urea Nitrogen 11 mg/dL (9-23); Glucose 91 mg/dL (74-106)
[2023-06-04] MEDS: hydrALAZINE HCL 20 MG/ML VL IV PRN (07:55)
[2023-06-04] MEDS: LISINOPRIL 5 MG TAB PO SCH (10:59)
[2023-06-04] MEDS ORDERED: LEVO500T91 PO (11:01)
[2023-06-04] MEDS ORDERED: MET500T PO (11:01)
[2023-06-04] MEDS ORDERED: SACC1CAP3 PO (11:01)
== END 2023-06-04 16:30 | disposition home or self-care (01) | DRG 872 ==
LOC: ER 09:25 → OVERFLOW 12:32 → WEST WING 12:32
PROVIDERS: ADMIT Internal Medicine; ATTEND Internal Medicine
DX: A41.9 Sepsis, unspecified organism (principal); K57.20 Diverticulitis of large intestine with perforation and abscess without bleeding; E86.0 Dehydration; I10 Essential (primary) hypertension; J45.909 Unspecified asthma, uncomplicated; Z88.5 Allergy status to narcotic agent; Z83.3 Family history of diabetes mellitus
CPT/HCPCS: 36415; 71045; 74176; 80048; 80053; 81001; 83605; 84484; 85025; 85610; 85730; 87040; 93005; 96365; 96375; 97110; 97116; 97163; 97530; G0378; J0696; J2405; J2543; J3480; J3490

== ENCOUNTER → 2023-06-19 | Outpatient (CLI) | payer OTHER ==
[~2023-06-19] MED LIST changes: +LEVO500T91 PO; +MET500T PO; +SACC1CAP3 PO
[2023-06-19 09:47] LABS: Basophils # (auto) 0.1 10 ^3/uL (0-0.2); Eosinophils # (auto) 0.1 10 ^3/uL (0-0.8); Hemoglobin 12.3 g/dL (12.2-16.2); Monocytes # (auto) 0.6 10 ^3/uL (0-1.3)
[2023-06-19 09:49] LABS: Basophils % (auto) 1.5 % (0.0-2.0); Hematocrit 36.9 % (36.0-46.0); Lymphocytes # (auto) 1.6 10 ^3/uL (0.4-5.4); Lymphocytes % (auto) 29.6 % (10.0-50.0); Mean Corpuscular Hemoglobin 28.6 pg (28.0-32.0); Mean Corpuscular Hgb Conc. 33.2 g/dL (32.0-36.0); Monocytes % (auto) 10.7 % (0.0-12.0); Neutrophils % (auto) 56.2 % (37.0-80.0); Red Cell Distribution Width 14.4 % (11.8-14.3); White Blood Cell 5.4 10^3/uL (4.4-10.8)
[2023-06-19 10:02] LABS: Urine Bacteria NONE SEEN /hpf (None Seen); Urine Blood Negative /uL (Negative); Urine Clarity Clear (Clear); Urine Color Colorless (Yellow); Urine Protein, UAD Negative (Negative); Urine Specific Gravity 1.013 (1.001-1.035); Urine Urobilinogen Normal (Negative); Urine WBC 1 /hpf (0 - 5)
[2023-06-19 10:23] LABS: Alanine Aminotransferase 11 U/L (7-40); Albumin 4.3 g/dL (3.2-4.8); Alkaline Phosphatase 83 U/L (46-116); Anion Gap 6 (5-15); Aspartate Aminotransferase 10 U/L (13-40); BUN/Creatinine Ratio 10.8 (10.0-20.0); Bilirubin, Total 0.2 mg/dL (0.2-1.0); Blood Urea Nitrogen 8 mg/dL (9-23); Calcium 9.9 mg/dL (8.5-10.1); Carbon Dioxide 27 mmol/L (20-30); Chloride 101 mmol/L (98-107); Glucose 95 mg/dL (74-106); Sodium 134 mmol/L (136-145); Total Protein 6.8 g/dL (5.7-8.2)
== END | disposition home or self-care (01) ==
LOC: LAB 09:30
PROVIDERS: ATTEND Internal Medicine
DX: K57.92 Diverticulitis of intestine, part unspecified, without perforation or abscess without bleeding (principal); R10.9 Unspecified abdominal pain
CPT/HCPCS: 36415; 80053; 81001; 85025

== ENCOUNTER → 2023-07-08 | Outpatient (CLI) | payer OTHER ==
[2023-07-08 12:04] LABS: Basophils # (auto) 0.1 10 ^3/uL (0-0.2); Basophils % (auto) 1.3 % (0.0-2.0); Eosinophils # (auto) 0.1 10 ^3/uL (0-0.8); Eosinophils % (auto) 2.3 % (0.0-7.0); Hematocrit 37.9 % (36.0-46.0); Hemoglobin 12.7 g/dL (12.2-16.2); Lymphocytes # (auto) 1.5 10 ^3/uL (0.4-5.4); Lymphocytes % (auto) 26.6 % (10.0-50.0); Mean Corpuscular Hemoglobin 28.9 pg (28.0-32.0); Mean Corpuscular Hgb Conc. 33.4 g/dL (32.0-36.0); Mean Corpuscular Volume 86.4 fL (80.0-100.0); Monocytes # (auto) 0.4 10 ^3/uL (0-1.3); Monocytes % (auto) 7.8 % (0.0-12.0); Neutrophils # (auto) 3.4 10 ^3/uL (1.6-8.6); Nucleated Red Blood Cells % 0.1 %; Red Blood Cells 4.38 10^6/uL (4.0-5.20); Red Cell Distribution Width 14.6 % (11.8-14.3); White Blood Cell 5.5 10^3/uL (4.4-10.8)
== END | disposition home or self-care (01) ==
LOC: LAB 11:44
PROVIDERS: ATTEND Internal Medicine
DX: K57.90 Diverticulosis of intestine, part unspecified, without perforation or abscess without bleeding (principal)
CPT/HCPCS: 36415; 85025

== ENCOUNTER → 2023-10-02 | Outpatient (CLI) | payer OTHER ==
[2023-10-02 08:47] LABS: Triglycerides 183 mg/dL (< 150)
[2023-10-02 08:48] LABS: LDL Cholesterol 112 mg/dL (< 100)
[2023-10-02 08:49] LABS: Cholesterol 187 mg/dL (< 200); HDL Cholesterol 43 mg/dL (40-59)
== END | disposition home or self-care (01) ==
LOC: LAB 08:04
PROVIDERS: ATTEND Internal Medicine
DX: R73.03 Prediabetes (principal); E78.5 Hyperlipidemia, unspecified
CPT/HCPCS: 36415; 80061; 83036

== ENCOUNTER → 2023-11-22 | Day surgery (SDC) | payer OTHER ==
[2023-11-20 14:55] LABS: Alanine Aminotransferase 19 U/L (7-40); Albumin 4.8 g/dL (3.2-4.8); Alkaline Phosphatase 101 U/L (46-116); Anion Gap 5 (5-15); Aspartate Aminotransferase 19 U/L (13-40); BUN/Creatinine Ratio 18.6 (10.0-20.0); Blood Urea Nitrogen 13 mg/dL (9-23); Calcium 9.7 mg/dL (8.5-10.1); Carbon Dioxide 28 mmol/L (20-30); Chloride 98 mmol/L (98-107); Glucose 92 mg/dL (74-106); Sodium 131 mmol/L (136-145)
[2023-11-20 14:56] LABS: Bilirubin, Total 0.3 mg/dL (0.2-1.0); Total Protein 7.4 g/dL (5.7-8.2)
[2023-11-20 15:03] LABS: Basophils # (auto) 0.1 10 ^3/uL (0-0.2); Basophils % (auto) 0.9 % (0.0-2.0); Eosinophils # (auto) 0.1 10 ^3/uL (0-0.8); Eosinophils % (auto) 1.8 % (0.0-7.0); Hemoglobin 12.7 g/dL (12.2-16.2); Lymphocytes # (auto) 1.9 10 ^3/uL (0.4-5.4); Lymphocytes % (auto) 24.2 % (10.0-50.0); Mean Corpuscular Hemoglobin 28.6 pg (28.0-32.0); Mean Corpuscular Hgb Conc. 33.5 g/dL (32.0-36.0); Mean Corpuscular Volume 85.4 fL (80.0-100.0); Monocytes # (auto) 0.5 10 ^3/uL (0-1.3); Monocytes % (auto) 6.5 % (0.0-12.0); Neutrophils # (auto) 5.1 10 ^3/uL (1.6-8.6); Neutrophils % (auto) 66.6 % (37.0-80.0); Red Blood Cells 4.45 10^6/uL (4.0-5.20); Red Cell Distribution Width 14.2 % (11.8-14.3); White Blood Cell 7.7 10^3/uL (4.4-10.8)
[2023-11-20 15:12] LABS: INR 0.97 (0.9-1.15); Partial Thromboplastin Time 27.9 SEC (24.5-34.5); Prothrombin Time 10.3 sec (9.3-11.8)
[~2023-11-22] VITALS: Ht 157.5 cm; Wt 69.4 kg
[~2023-11-22] MED LIST changes: -ASCO500C49 PO; -CHOL20009 PO; -FLUT0.05 NAS; +KRIL1CAP14 PO; -LEVO500T91 PO; -MET500T PO; -PROM1SOL4 PO; -ZINC220C10 PO; +ZOFR4T PO; +diphenhdrAMINE HCL 50 MG/1 ML VL ONE
[2023-11-22 12:09] VITALS: O2SAT 97
[2023-11-22] MEDS: MIDAZOLAM HCL 5 MG/ML-1ML VIAL ONE (12:15)
[2023-11-22] MEDS: diphenhdrAMINE HCL 50 MG/1 ML VL ONE (12:15)
[2023-11-22] MEDS: fentaNYL CITRATE 100 MCG/2 ML VL ONE (12:15)
[2023-11-22 12:44] VITALS: PULSE 61; RESP 15; O2SAT 94
[2023-11-22 12:45] VITALS: TEMP 97.6
[2023-11-22 13:30] VITALS: BP 131/68; PULSE 59; RESP 15; O2SAT 98
== END | disposition home or self-care (01) ==
LOC: GI 09:17
PROVIDERS: ATTEND Internal Medicine Gastroenterology
DX: Z12.11 Encounter for screening for malignant neoplasm of colon (principal); K63.5 Polyp of colon; K57.30 Diverticulosis of large intestine without perforation or abscess without bleeding; K64.0 First degree hemorrhoids; K21.9 Gastro-esophageal reflux disease without esophagitis; I10 Essential (primary) hypertension; J45.909 Unspecified asthma, uncomplicated; Z79.01 Long term (current) use of anticoagulants; Z79.899 Other long term (current) drug therapy; Z98.890 Other specified postprocedural states; Z88.5 Allergy status to narcotic agent
CPT/HCPCS: 36415; 45380; 80053; 85025; 85610; 85730; 88305; J1200; J2250; J3010

== ENCOUNTER → 2024-02-06 | Outpatient (CLI) | payer OTHER ==
[~2024-02-06] MED LIST changes: -diphenhdrAMINE HCL 50 MG/1 ML VL ONE
[2024-02-06 08:12] LABS: Basophils # (auto) 0.1 10 ^3/uL (0-0.2); Basophils % (auto) 1.3 % (0.0-2.0); Eosinophils # (auto) 0.1 10 ^3/uL (0-0.8); Eosinophils % (auto) 2.7 % (0.0-7.0); Hematocrit 40.9 % (36.0-46.0); Hemoglobin 14.1 g/dL (12.2-16.2); Lymphocytes # (auto) 1.9 10 ^3/uL (0.4-5.4); Lymphocytes % (auto) 35.9 % (10.0-50.0); Mean Corpuscular Hemoglobin 29.8 pg (28.0-32.0); Mean Corpuscular Hgb Conc. 34.4 g/dL (32.0-36.0); Mean Corpuscular Volume 86.6 fL (80.0-100.0); Monocytes # (auto) 0.3 10 ^3/uL (0-1.3); Monocytes % (auto) 6.4 % (0.0-12.0); Neutrophils # (auto) 2.9 10 ^3/uL (1.6-8.6); Neutrophils % (auto) 53.7 % (37.0-80.0); Red Blood Cells 4.72 10^6/uL (4.0-5.20); Red Cell Distribution Width 14.3 % (11.8-14.3); White Blood Cell 5.4 10^3/uL (4.4-10.8)
[2024-02-06 08:30] LABS: Partial Thromboplastin Time 28.5 SEC (24.5-34.5); Prothrombin Time 10.6 sec (9.3-11.8)
[2024-02-06 08:57] LABS: Triglycerides 179 mg/dL (< 150)
[2024-02-06 08:58] LABS: Cholesterol 209 mg/dL (< 200); LDL Cholesterol 130 mg/dL (< 100)
[2024-02-06 08:59] LABS: HDL Cholesterol 50 mg/dL (40-59)
== END | disposition home or self-care (01) ==
LOC: LAB 07:52
PROVIDERS: ATTEND Internal Medicine
DX: E78.5 Hyperlipidemia, unspecified (principal); K57.90 Diverticulosis of intestine, part unspecified, without perforation or abscess without bleeding; D75.839 Thrombocytosis, unspecified
CPT/HCPCS: 36415; 80061; 82306; 82607; 84403; 84443; 85025; 85610; 85730

== ENCOUNTER → 2024-06-16 | Outpatient (CLI) | payer OTHER ==
[2024-06-16 08:29] LABS: Triglycerides 203 mg/dL (< 150)
[2024-06-16 08:30] LABS: LDL Cholesterol 97 mg/dL (< 100)
[2024-06-16 08:31] LABS: Cholesterol 177 mg/dL (< 200); HDL Cholesterol 51 mg/dL (40-59)
== END | disposition home or self-care (01) ==
LOC: LAB 07:32
PROVIDERS: ATTEND Internal Medicine
DX: E78.5 Hyperlipidemia, unspecified (principal)
CPT/HCPCS: 36415; 80061

== ENCOUNTER → 2024-09-16 | Outpatient (CLI) | payer OTHER ==
[2024-09-16 08:30] LABS: Creatinine, Urine 47.22 mg/dL (30.0-125.0)
[2024-09-16 08:34] LABS: Alanine Aminotransferase 21 U/L (7-40); Alkaline Phosphatase 102 U/L (46-116); Anion Gap 8 (5-15); BUN/Creatinine Ratio 19.7 (10.0-20.0); Bilirubin, Total 0.4 mg/dL (0.2-1.0); Blood Urea Nitrogen 14 mg/dL (9-23); Calcium 10.2 mg/dL (8.7-10.4); Carbon Dioxide 27 mmol/L (20-31); Chloride 103 mmol/L (98-107); Glucose 92 mg/dL (74-106); HDL Cholesterol 52 mg/dL (40-59); Potassium 4.3 mmol/L (3.5-5.1); Sodium 138 mmol/L (136-145); Total Protein 7.3 g/dL (5.7-8.2)
[2024-09-16 08:39] LABS: Albumin 4.9 g/dL (3.2-4.8); Aspartate Aminotransferase 12 U/L (13-40); Cholesterol 213 mg/dL (< 200); LDL Cholesterol 133 mg/dL (< 100); Triglycerides 203 mg/dL (< 150)
== END | disposition home or self-care (01) ==
LOC: LAB 07:28
PROVIDERS: ATTEND Internal Medicine
DX: E78.5 Hyperlipidemia, unspecified (principal); R73.03 Prediabetes
CPT/HCPCS: 36415; 80053; 80061; 82043; 82570; 83036

== ENCOUNTER 2024-12-17 08:34 | Outpatient (CLI) | payer OTHER ==
[2024-12-17 09:24] LABS: Alanine Aminotransferase 21 U/L (7-40); Albumin 4.8 g/dL (3.2-4.8); Alkaline Phosphatase 104 U/L (46-116); Cholesterol 172 mg/dL (< 200); HDL Cholesterol 44 mg/dL (40-59); LDL Cholesterol 98 mg/dL (< 100); Total Protein 7.2 g/dL (5.7-8.2)
[2024-12-17 09:25] LABS: Aspartate Aminotransferase 12 U/L (13-40); Bilirubin, Direct < 0.1 mg/dL (<0.3); Bilirubin, Total 0.3 mg/dL (0.2-1.0); Triglycerides 153 mg/dL (< 150)
== END 2024-12-17 17:00 | disposition home or self-care (01) ==
LOC: LAB 08:34
PROVIDERS: ATTEND Internal Medicine
DX: I10 Essential (primary) hypertension (principal); E03.9 Hypothyroidism, unspecified; M05.79 Rheumatoid arthritis with rheumatoid factor of multiple sites without organ or systems involvement; E78.5 Hyperlipidemia, unspecified
CPT/HCPCS: 36415; 80061; 80076

== ENCOUNTER 2024-12-21 07:35 | Outpatient (CLI) | payer OTHER ==
[2024-12-21 07:50] LABS: Urine Bacteria None Seen /hpf (None Seen)
[2024-12-21 07:57] LABS: Basophils # (auto) 0 10 ^3/uL (0-0.2); Eosinophils # (auto) 0.1 10 ^3/uL (0-0.8); Eosinophils % (auto) 2.8 % (0.0-7.0); Hematocrit 41.4 % (36.0-46.0); Lymphocytes # (auto) 1.3 10 ^3/uL (0.4-5.4); Lymphocytes % (auto) 29.9 % (10.0-50.0); Mean Corpuscular Hemoglobin 29.1 pg (28.0-32.0); Mean Corpuscular Hgb Conc. 33.8 g/dL (32.0-36.0); Mean Corpuscular Volume 86.1 fL (80.0-100.0); Monocytes # (auto) 0.4 10 ^3/uL (0-1.3); Monocytes % (auto) 8.4 % (0.0-12.0); Neutrophils # (auto) 2.4 10 ^3/uL (1.6-8.6); Neutrophils % (auto) 57.9 % (37.0-80.0); Nucleated Red Blood Cells % 0.3 %; Platelet Count (auto) 300 10^3/uL (140-450); Red Blood Cells 4.81 10^6/uL (4.0-5.20); Red Cell Distribution Width 13.6 % (11.8-14.3); White Blood Cell 4.2 10^3/uL (4.4-10.8)
[2024-12-21 07:59] LABS: Urine Blood Negative /uL (Negative); Urine Clarity Clear (Clear); Urine Color Colorless (Yellow); Urine Protein, UAD Negative (Negative); Urine Specific Gravity 1.011 (1.001-1.035); Urine Squamous Epithelial Cell None Seen /hpf (<5); Urine Urobilinogen Normal (Negative)
[2024-12-21 08:42] LABS: Alanine Aminotransferase 19 U/L (7-40); Alkaline Phosphatase 98 U/L (46-116); Anion Gap 6 (5-15); Aspartate Aminotransferase 15 U/L (13-40); BUN/Creatinine Ratio 13.9 (10.0-20.0); Blood Urea Nitrogen 10 mg/dL (9-23); Calcium 10.1 mg/dL (8.7-10.4); Carbon Dioxide 28 mmol/L (20-31); Chloride 106 mmol/L (98-107); Glucose 101 mg/dL (74-106); HDL Cholesterol 47 mg/dL (40-59); Potassium 4.1 mmol/L (3.5-5.1); Sodium 140 mmol/L (136-145); Total Protein 7.4 g/dL (5.7-8.2)
[2024-12-21 08:43] LABS: Bilirubin, Total 0.5 mg/dL (0.2-1.0)
[2024-12-21 08:44] LABS: Albumin 4.9 g/dL (3.2-4.8); Cholesterol 209 mg/dL (< 200); LDL Cholesterol 134 mg/dL (< 100); Triglycerides 188 mg/dL (< 150)
== END 2024-12-21 17:00 | disposition home or self-care (01) ==
LOC: LAB 07:35
PROVIDERS: ATTEND Internal Medicine
DX: I10 Essential (primary) hypertension (principal); E78.5 Hyperlipidemia, unspecified; R73.03 Prediabetes; R53.83 Other fatigue; Z79.899 Other long term (current) drug therapy
CPT/HCPCS: 36415; 80053; 80061; 81001; 82306; 82728; 84443; 85025

== ENCOUNTER 2025-01-06 07:44 | Inpatient (IN) | payer OTHER ==
[~2025-01-06] VITALS: Ht 157.5 cm; Wt 69.0 kg
--- NOTE | 2025-01-06 07:55 | ED.PDOC ---
GI ASSESSMENT HPI Comments 69 y.o female presents to the ED for a chief complaint of LLQ pain that started last night. Patient describes pain as sharp, non radiating and intermittent with no alleviating or precipitating factors. Patient reports previous similar pain, was seen at the hospital and admitted with a dx of diverticulosis. Patient denies any nausea, vomiting or diarrhea but does has softer stool than usual. Patient denies substance, alcohol or tobacco use. Chief Complaint: Abdominal Pain Time Seen by MD: 07:49 Primary Care Provider: darling Reviewed Notes: Nurses Notes, Medications, Allergies Allergies: Coded Allergies: Codeine (Verified Allergy, Unknown, 08/03/22) Home Meds Active Scripts Yeast (S. Boulardii)(S. Cerevi (Probiotic) 250 Mg Cap, 250 MG PO BID for 30 Days, #60 CAP Prov:BERNICE VARGAS MD 06/04/23 Reported Medications Ondansetron Odt 4MG Tab (ZOFRAN PO) 4 Mg Tb, 4 MG PO PRN, TAB ODT TAB-DISSOLVE IN MOUTH, THEN SWALLOW 11/20/23 Krill Oil ([place]-3 500 mg) 1 Cap Cap, 1000 MG PO DAILY, CAP 11/20/23 Albuterol Sulfate (Albuterol Sulfate) 2 Mg Tab, INH 08/04/22 Montelukast Sodium (MONTELUKAST SODIUM) 10 Mg Tab, 1 TAB PO HS 08/04/22 Cetirizine Hcl (EQ ALLERGY RELIEF) 10 Mg Tab, 10 MG PO, TAB 08/04/22 Biotin (Vitamin H) (Biotin) 1,000 Mcg Tab, 500 MCG PO, TAB 08/04/22 Cyanocobalamin (B12) 1,000 Mcg Tab, 2500 MCG PO 08/04/22 Lisinopril & Hydrochlorothiazi (Zestoretic) 1 Tab Tab, 1 TAB PO DAILY, #30 TAB 5 Refills 08/11/18 Information Source: Patient Mode of Arrival: Ambulatory Timing: Hours Duration: Intermittent Quality: Sharp Vomitus: None Stool: Loose Severity: Moderate Recent: None Recent Hx of: None Pain Location: LLQ Modifying Factors: Nothing Associated sign and symptoms: Abdominal Pain Past Medical History PAST MEDICAL HISTORY: Asthma, HTN Past Medical History (Other): diverticulosis Surgical History: Hernia Repair, Tonsillectomy CODING AND REIMBURSEMENT SPECIALIST History: Denies all CODING AND REIMBURSEMENT SPECIALIST Hx Family History Family History: Reviewed,noncontributory to illness Social History Smoker: Non-Smoker Alcohol: Denies ETOH Use Drugs: Denies Drug Use Lives In: Home Constitutional: denies: chills, diaphoresis, fatigue, fever, malaise, sweats, weakness, others EENTM: denies: blurred vision, double vision, ear bleeding, ear discharge, ear drainage, ear pain, ear ringing, eye pain, eye redness, hearing loss, mouth pain, mouth swelling, nasal discharge, nose bleeding, nose congestion, nose pain, photophobia, tearing, throat pain, throat swelling, voice changes, others Respiratory: denies: cough, hemoptysis, orthopnea, SOB at rest, shortness of breath, SOB with excertion, stridor, wheezing, others Cardiovascular: denies: chest pain, dizzy spells, diaphoresis, Dyspnea on exertion, edema, irregular heart beat, left arm pain, lightheadedness, palpitations, PND, syncope, others Gastrointestinal: reports: abdominal pain; denies: abdomen distended, blood streaked bowels, constipated, diarrhea, dysphagia, difficulty swallowing, hematemesis, melena, nausea, poor appetite, poor fluid intake, rectal bleeding, rectal pain, vomiting, others Genitourinary: denies: abnormal vagina bleeding, burning, dyspareunia, dysuria, flank pain, frequency, hematuria, incontinence, pain, , vagina discharge, urgency, others Neurological: denies: dizziness, fainting, headache, left sided numbness, left sided weakness, numbness, paresthesia, pre-existing deficit, right sided numbness, right sided weakness, seizure, speech problems, tingling, tremors, we akness, others Musculoskeletal: denies: back pain, gout, joint pain, joint swelling, muscle pain, muscle stiffness, neck pain, others Integumetry: denies: bruises, change in color, change in hair/nails, dryness, laceration, lesions, lumps, rash, wounds, others Allergic/Immunocompromised: denies: Difficulty Healing, Frequent Infections, Hives, Itching, others Hematologic/Lymphatic: denies: anemia, blood clots, easy bleeding, easy bruising, swollen glands, others Endocrine: denies: excessive hunger, excessive sweating, excessive thirst, excessive urination, flushing, intolerance to cold, intolerance to heat, unexplained weight gain, unexplained weight loss, others Psychiatric: denies: anxiety, bipolar disorder, depression, hopeless, panic disorder, schizophrenia, sleepless, suicidal, others All Other Systems: Reviewed and Negative Physical Exam General Appearance: Mild Distress HEENT: Normal ENT Inspection, Pharynx Normal, TMs Normal Neck: Full Range of Motion, Non-Tender, Normal, Normal Inspection Respiratory: Chest Non-Tender, Lungs Clear, No Accessory Muscle Use, No Respiratory Distress, Normal Breath Sounds Cardiovascular: No Edema, No JVD, No Murmur, No Gallop, Normal Peripheral Pulses, Regular Rate/Rhythm Breast Exam: Deferred Gastrointestinal: LLQ, Tenderness Genitalia: Deferred Pelvic: Deferred Rectal: Deferred Extremities: No calf tenderness, Normal capillary refill, Normal inspection, Normal range of motion, Non-tender, No pedal edema Musculoskeletal : Apperance: Normal Neurologic: Alert, video news editor II-XII nml as Tested, No Motor Deficits, Normal Affect, Normal Mood, No Sensory Deficits Cerebellar Function: Normal Reflexes: Normal Skin: Dry, Normal Color, Warm Lymphatic: No Adenopathy Was a procedure done? Was a procedure done?: No GI differential Dx Differential Diagnosis: Diverticular disease, Esophagitis, Gastroenteritis X-Ray, Labs, Meds, VS Vital Signs Date Time Temp Pulse Resp B/P (MAP) Pulse Ox O2 Delivery O2 Flow Rate FiO2 01/06/25 08:36 77 14 149/85 01/06/25 08:30 77 14 94 Room Air* 0 21 01/06/25 08:30 98.4 77 14 149/85 (106) 94 98.4 01/06/25 07:49 98.7 90 18 164/89 (114) 95 98.7 Lab Test 01/06/25 07:53 01/06/25 07:48 Range/Units White Blood Count 7.9 4.4-10.8 10^3/uL Red Blood Count 4.84 4.0-5.20 10^6/uL Hemoglobin 14.3 12.2-16.2 g/dL Hematocrit 41.4 36.0-46.0 % Mean Corpuscular Volume 85.5 80.0-100.0 fL Mean Corpuscular Hemoglobin 29.6 28.0-32.0 pg Mean Corpuscular Hemoglobin Concent 34.7 32.0-36.0 g/dL Red Cell Distribution Width 13.5 11.8-14.3 % Platelet Count 288 140-450 10^3/uL Mean Platelet Volume 8.8 6.9-10.8 fL Neutrophils (%) (Auto) 72.7 37.0-80.0 % Lymphocytes (%) (Auto) 18.5 10.0-50.0 % Monocytes (%) (Auto) 6.9 0.0-12.0 % Eosinophils (%) (Auto) 1.2 0.0-7.0 % Basophils (%) (Auto) 0.7 0.0-2.0 % Neutrophils # (Auto) 5.8 1.6-8.6 10 ^3/uL Lymphocytes # (Auto) 1.5 0.4-5.4 10 ^3/uL Monocytes # (Auto) 0.5 0-1.3 10 ^3/uL Eosinophils # (Auto) 0.1 0-0.8 10 ^3/uL Basophils # (Auto) 0.1 0-0.2 10 ^3/uL Nucleated Red Blood Cells 0.1 % Sodium Level 139 136-145 mmol/L Potassium Level 3.8 3.5-5.1 mmol/L Chloride Level 105 98-107 mmol/L Carbon Dioxide Level 25 20-31 mmol/L Anion Gap 9 5-15 Blood Urea Nitrogen 12 9-23 mg/dL Creatinine 0.74 0.550-1.02 mg/dL Glomerular Filtration Rate Calc 86 >90 mL/min BUN/Creatinine Ratio 16.2 10.0-20.0 Serum Glucose 96 74-106 mg/dL Calcium Level 10.3 8.7-10.4 mg/dL Troponin I High Sensitivity 4 </=34 ng/L Urine Color Light-yellow Yellow Urine Clarity Clear Clear Urine pH 6.0 5.0-9.0 Urine Specific [place] 1.015 1.001-1.035 Urine Protein Negative Negative Urine Ketones Negative Negative Urine Blood Trace H Negative /uL Urine Nitrite Negative Negative Urine Bilirubin Negative Negative Urine Urobilinogen Normal Negative mg/dL Urine Leukocyte Esterase Negative Negative /uL Urine RBC 2 0 - 4 /hpf Urine Microscopic WBC 1 0-5 /HPF Urine Squamous Epithelial Cells None seen <5 /hpf Urine Bacteria None seen None Seen /hpf Urine Glucose Normal Normal mg/dL Current Medications Medications (Trade) Dose Ordered Sig/Feng Route Start Time Stop Time Status Last Admin Sodium Chloride 1,000 ml @ 1,000 mls/hr Q1H ONCE IV 01/06/25 08:00 01/06/25 08:59 DC 01/06/25 08:22 Ondansetron HCl (Zofran) 4 mg ONCE ONCE IV 01/06/25 08:00 01/06/25 08:01 DC 01/06/25 08:24 Morphine Sulfate 4 mg ONCE ONCE IV 01/06/25 08:00 01/06/25 08:01 DC 01/06/25 08:36 Time of 1ST Reevaluation: 07:55 Reevaluation 1ST: Unchanged Patient Education/Counseling: Diagnosis, Treatment, Prognosis Family Education/Counseling: No Family Present SEPSIS Sepsis Screen Orders/Vitals/Labs Physician Orders Ct Ab Pel With Iv Con Only (01/06/25 07:51) Cefazolin 2 [id number] (Ancef) (01/06/25 09:45) Metronidazole 500mg/100ml (Flagyl 500mg/ (01/06/25 09:45) Vital Signs Date Time Temp Pulse Resp B/P (MAP) Pulse Ox O2 Delivery O2 Flow Rate FiO2 01/06/25 08:36 77 14 149/85 01/06/25 08:30 77 14 94 Room Air* 0 21 01/06/25 08:30 98.4 77 14 149/85 (106) 94 98.4 01/06/25 07:49 98.7 90 18 164/89 (114) 95 98.7 Laboratory Tests Test 01/06/25 07:53 White Blood Count 7.9 10^3/uL (4.4-10.8) Medications Medications Dose Ordered Sig/Feng Route Start Time Stop Time Status Last Admin Dose Admin Morphine Sulfate 4 mg ONCE ONCE IV 01/06/25 08:00 01/06/25 08:01 DC 01/06/25 08:36 Ondansetron HCl 4 mg ONCE ONCE IV 01/06/25 08:00 01/06/25 08:01 DC 01/06/25 08:24 Sodium Chloride 1,000 ml @ 1,000 mls/hr Q1H ONCE IV 01/06/25 08:00 01/06/25 08:59 DC 01/06/25 08:22 Departure 1 Departure Time of Disposition: 09:53 (Patient presented with abdominal pain that was concerning for possible appendicits, gastritis, cholecystitis, colitis, gastroenteritis, sbo, or orther possible surgical emergency. Data: 1. I ordered and reviewed the result of at least 3 labs including a CBC, BMP, and Urinalysis. 2. I independently interpreted the following tests: CT Abdoment and Pelvis is concerning for diverticulitis .Risk:This patient has a high risk of morbidity due to further diagnostic testing or treatment and may suffer from an acute abdominal process disorder. Workup reveals diverticulitis and intractable abdominal pain and patient should be admitted for further workup. and possible expert consultation. ) Impression: Primary Impression: Diverticulitis of intestine Qualified Codes: K57.32 - Diverticulitis of large intestine without perforation or abscess without bleeding Additional Impression: Intractable abdominal pain Disposition: ADMITTED INPATIENT Admit to: Med Surg Condition: Serious Critical Care Note Critical Care Time?: Yes Critical care comment: Intractable abdominal pain Authorized and Performed by: Candace Orellana MD Total critical care time: Approximately 38 minutes Due to a high probability of clinically significant, life threatening deterioration, the patient required my highest level of preparedness to intervene emergently and I personally spent this critical care time directly and personally managing the patient. This critical care time included obtaining a history; examining the patient; pulse oximetry; ordering and review of studies; arranging urgent treatment with development of a management plan; evaluation of patient's response to treatment; frequent reassessment; and, discussions with other providers. This critical care time was performed to assess and manage the high probability of imminent, life-threatening deterioration that could result in multi-organ failure. It was exclusive of separately billable procedures and treating other patients and teaching time. Please see my other sections and the rest of the note for further information on patient assessment and treatment. Stability Stability form required: No I personally scribed for CANDACE ORELLANA MD ([email or web address]) on 01/06/25 at 07:55. Electronically submitted by Divine Griggs ([facility]). CANDACE ORELLANA MD Jan 06, 2025 07:55
[2025-01-06 08:12] LABS: Urine Bacteria None Seen /hpf (None Seen)
[2025-01-06 08:15] LABS: Basophils # (auto) 0.1 10 ^3/uL (0-0.2); Basophils % (auto) 0.7 % (0.0-2.0); Eosinophils # (auto) 0.1 10 ^3/uL (0-0.8); Eosinophils % (auto) 1.2 % (0.0-7.0); Hematocrit 41.4 % (36.0-46.0); Hemoglobin 14.3 g/dL (12.2-16.2); Lymphocytes # (auto) 1.5 10 ^3/uL (0.4-5.4); Lymphocytes % (auto) 18.5 % (10.0-50.0); Mean Corpuscular Hemoglobin 29.6 pg (28.0-32.0); Mean Corpuscular Hgb Conc. 34.7 g/dL (32.0-36.0); Mean Corpuscular Volume 85.5 fL (80.0-100.0); Monocytes # (auto) 0.5 10 ^3/uL (0-1.3); Monocytes % (auto) 6.9 % (0.0-12.0); Neutrophils # (auto) 5.8 10 ^3/uL (1.6-8.6); Neutrophils % (auto) 72.7 % (37.0-80.0); Nucleated Red Blood Cells % 0.1 %; Platelet Count (auto) 288 10^3/uL (140-450); Red Blood Cells 4.84 10^6/uL (4.0-5.20); Red Cell Distribution Width 13.5 % (11.8-14.3); White Blood Cell 7.9 10^3/uL (4.4-10.8)
[2025-01-06 08:19] LABS: Chloride 105 mmol/L (98-107); Potassium 3.8 mmol/L (3.5-5.1); Sodium 139 mmol/L (136-145)
[2025-01-06 08:20] LABS: Anion Gap 9 (5-15); Calcium 10.3 mg/dL (8.7-10.4); Carbon Dioxide 25 mmol/L (20-31)
[2025-01-06] MEDS: SODIUM CHLORIDE 0.9% 1,000 ML IV ONE ×2 (08:22→12:23)
[2025-01-06] MEDS: ONDANSETRON HCL 4 MG/2 ML VIAL IV ONE (08:24)
[2025-01-06 08:25] LABS: BUN/Creatinine Ratio 16.2 (10.0-20.0); Blood Urea Nitrogen 12 mg/dL (9-23); Glucose 96 mg/dL (74-106)
[2025-01-06 08:26] LABS: Urine Blood TRACE /uL (Negative); Urine Clarity Clear (Clear); Urine Color Light-Yellow (Yellow); Urine Protein, UAD Negative (Negative); Urine Specific Gravity 1.015 (1.001-1.035); Urine Squamous Epithelial Cell None Seen /hpf (<5); Urine Urobilinogen Normal (Negative); Urine WBC 1 /HPF (0-5)
[2025-01-06 08:30] VITALS: PULSE 77; RESP 14; O2SAT 94
[2025-01-06] MEDS: MORPHINE SULFATE 4 MG/ML SYR/VIAL IV ONE (08:36)
--- NOTE | 2025-01-06 09:25 | DVH ---
Exam: CT CT AB PEL WITH IV CON ONLY History: llq pain Comparison Study: CT abdomen pelvis 05/31/23 TECHNIQUE: Multidetector CT of the abdomen was performed from lung bases to pubic symphysis. Imaging was performed without IV contrast. Axial, coronal and sagittal multiplanar reformats were obtained fr om the axial data set by the technologist. Radiation dose : 1. Abdomen/Pelvis: CTDIvol 11.9 mGy, DLP 607.17 mGy*cm. FINDINGS: Evaluation of solid organs is limited due to lack of intravenous contrast use. Findings: Lung Bases: No acute or significant lung base finding. Normal heart size. No pleural or pericardial effusion. Liver: The liver is normal in size. No focal lesions. Gallbladder and biliary Tree: Unremarkable Spleen: Unremarkable Pancreas: The pancreas is grossly normal in appearance. Adrenal Glands: Unremarkable Kidneys: 6.8cm exophytic right renal cyst. No hydronephrosis or renal calculi. Bladder: Grossly unremarkable for degree of distention. Bowel: The stomach is grossly normal in appearance. Sigmoid diverticulosis with wall thickening and p ericolonic fat stranding. No evidence of perforation or abscess. Normal appendix is visualized in th e right lower quadrant without findings of appendicitis. Ascites: Absent Lymphadenopathy: No mesenteric, retroperitoneal or periportal lymphadenopathy. Abdominal wall and Mesentery: Unremarkable. Vasculature: The visualized abdominal aorta is normal in size and caliber. Musculoskeletal: No aggressive focal bony lesions, acute fractures or dislocation. Soft tissues: Unremarkable IMPRESSION: 1. Findings consistent with acute sigmoid diverticulitis. No evidence of perforation or abscess. Antwan mmend follow-up with colonoscopy as an underlying mass cannot be excluded. 2. Radiation optimization: All CT scans at this facility use at least one of these dose optimization techniques: automated exposure control mA and/or kV adjustment per patient size (includes targeted e xams where dose is matched to clinical indication) or iterative reconstruction.
[2025-01-06] MEDS: ceFAZolin 2 GM/D5W50ml 50 ML IV ONE (11:03)
[2025-01-06] MEDS ORDERED: ACETAMINOPHEN 325 MG TAB PO PRN (12:00)
[2025-01-06] MEDS ORDERED: ONDANSETRON HCL 4 MG/2 ML VIAL IV PRN (12:00)
[2025-01-06] MEDS ORDERED: MORPHINE SULFATE INJ 2 MG/ml SYRG IV PRN (12:00)
[2025-01-06] MEDS ORDERED: DOCUSATE SOD 100 MG CAP PO PRN (12:00)
--- NOTE | 2025-01-06 12:03 | DVHHP2 ---
History of Present Illness Reason for Visit: Abdominal pain History of Present Illness Valentina Hooks is a 69-year-old female with past medical history of hyperlipemia, asthma, and diverticulosis, who came to the hospital for abdominal pain. Patient states her pain began last night in her LLQ, with associated nausea. She had an appointment for a stress test this morning that she was trying to make it too, but the pain continued to worsen prompting her to come to the hospital. Cardiovascular: hyperipidemia Pulmonary: Asthma GI: Diverticulosis Past Surgical History: Hernia Repair, Tonsillectomy Smoke: No ALCOHOL: none Drugs: None Lives: with Family Domestic Violence: Neg Review of Systems Constitutional: No: Fever, Chills, Sweats, Weakness, Malaise, Other Eyes: No: Pain, Vision change, Conjunctivae inflammation, Eyelid inflammation, Other, Redness ENT: No: Ear pain, Ear discharge, Nose pain, Nose discharge, Nose congestion, Mouth pain, Mouth swelling, Throat pain, Throat swelling, Other Respiratory: No: Cough, Dry, Shortness of breath, SOB with excertion, Wheezing, Hemoptysis, Pleuritic Pain, Sputum, Wheezing, Other Cardiovascular: No: Chest Pain, Palpitations, Orthopnea, Paroxysmal Noc. Dyspnea, Edema, Lt Headedness, Other Gastrointestinal: Nausea, Abdominal Pain (LLQ); No: Vomiting, Diarrhea, Constipation, Melena, Hematochezia, Other Genitourinary: No Dysuria, No Frequency, No Incontinence, No Hematuria, No Retention, No Other Musculoskeletal: No: other, neck pain, shoulder pain, arm pain, back pain, hand pain, leg pain, foot pain Skin: No: Rash, Lesions, Jaundice, Bruising, Other Neurological: No: Weakness, Numbness, Incoordination, Change in speech, Confusion, Seizures, Other Allergies: Coded Allergies: NO KNOWN ALLERGIES (Unverified , 01/06/25) Medications Current Medications Medications Dose Ordered Sig/Feng Route Start Time Stop Time Status Last Admin Dose Admin Acetaminophen/ Hydrocodone Bitart 1 tab Q4HP PRN PO 01/06/25 12:00 UNV Ondansetron HCl 4 mg Q4HP PRN IV 01/06/25 12:00 UNV Docusate Sodium 100 mg BIDPRN PRN PO 01/06/25 12:00 UNV Acetaminophen 650 mg Q6HP PRN PO 01/06/25 12:00 UNV Morphine Sulfate 2 mg Q4HPRN PRN IV 01/06/25 12:00 UNV Pantoprazole Sodium 40 mg BID IV 01/06/25 22:00 UNV Metronidazole 100 ml @ 100 mls/hr Q8HR IV 01/06/25 14:00 UNV Ceftriaxone Sodium 50 ml @ 100 mls/hr DAILY@09 IV 01/07/25 09:00 UNV Exam Vital Signs Vital Signs Date Time Temp Pulse Resp B/P (MAP) Pulse Ox O2 Delivery O2 Flow Rate FiO2 01/06/25 10:00 64 14 146/80 01/06/25 10:00 92 01/06/25 08:30 Room Air* 0 21 01/06/25 08:30 98.4 98.4 General Appearance: Alert, Oriented X3, Cooperative, moderate distress HEENT: Atraumatic, PERRLA Respiratory: Clear to auscultation, Normal air movement Cardiovascular: Regular rate, Normal S1, Normal S2, No murmurs Abdominal: Normal bowel sounds, Soft, Other (LLQ pain) Extremities: No clubbing, No cyanosis, No edema, Normal pulses Skin: No rashes, No breakdown, No significant lesion Neuro: Normal gait, Normal speech, Strength at 5/5 X4 ext, Normal tone Psych/Mental Status: Mental status NL, Mood NL Labs/Xrays Labs Test 01/06/25 07:53 01/06/25 07:48 Range/Units White Blood Count 7.9 4.4-10.8 10^3/uL Red Blood Count 4.84 4.0-5.20 10^6/uL Hemoglobin 14.3 12.2-16.2 g/dL Hematocrit 41.4 36.0-46.0 % Mean Corpuscular Volume 85.5 80.0-100.0 fL Mean Corpuscular Hemoglobin 29.6 28.0-32.0 pg Mean Corpuscular Hemoglobin Concent 34.7 32.0-36.0 g/dL Red Cell Distribution Width 13.5 11.8-14.3 % Platelet Count 288 140-450 10^3/uL Mean Platelet Volume 8.8 6.9-10.8 fL Neutrophils (%) (Auto) 72.7 37.0-80.0 % Lymphocytes (%) (Auto) 18.5 10.0-50.0 % Monocytes (%) (Auto) 6.9 0.0-12.0 % Eosinophils (%) (Auto) 1.2 0.0-7.0 % Basophils (%) (Auto) 0.7 0.0-2.0 % Neutrophils # (Auto) 5.8 1.6-8.6 10 ^3/uL Lymphocytes # (Auto) 1.5 0.4-5.4 10 ^3/uL Monocytes # (Auto) 0.5 0-1.3 10 ^3/uL Eosinophils # (Auto) 0.1 0-0.8 10 ^3/uL Basophils # (Auto) 0.1 0-0.2 10 ^3/uL Nucleated Red Blood Cells 0.1 % Sodium Level 139 136-145 mmol/L Potassium Level 3.8 3.5-5.1 mmol/L Chloride Level 105 98-107 mmol/L Carbon Dioxide Level 25 20-31 mmol/L Anion Gap 9 5-15 Blood Urea Nitrogen 12 9-23 mg/dL Creatinine 0.74 0.550-1.02 mg/dL Glomerular Filtration Rate Calc 86 >90 mL/min BUN/Creatinine Ratio 16.2 10.0-20.0 Serum Glucose 96 74-106 mg/dL Calcium Level 10.3 8.7-10.4 mg/dL Troponin I High Sensitivity 4 </=34 ng/L Urine Color Light-yellow Yellow Urine Clarity Clear Clear Urine pH 6.0 5.0-9.0 Urine Specific [place] 1.015 1.001-1.035 Urine Protein Negative Negative Urine Ketones Negative Negative Urine Blood Trace H Negative /uL Urine Nitrite Negative Negative Urine Bilirubin Negative Negative Urine Urobilinogen Normal Negative mg/dL Urine Leukocyte Esterase Negative Negative /uL Urine RBC 2 0 - 4 /hpf Urine Microscopic WBC 1 0-5 /HPF Urine Squamous Epithelial Cells None seen <5 /hpf Urine Bacteria None seen None Seen /hpf Urine Glucose Normal Normal mg/dL Exam: CT CT AB PEL WITH IV CON ONLY FINDINGS: Evaluation of solid organs is limited due to lack of intravenous contrast use. Findings: Lung Bases: No acute or significant lung base finding. Normal heart size. No pleural or pericardial effusion. Liver: The liver is normal in size. No focal lesions. Gallbladder and biliary Tree: Unremarkable Spleen: Unremarkable Pancreas: The pancreas is grossly normal in appearance. Adrenal Glands: Unremarkable Kidneys: 6.8cm exophytic right renal cyst. No hydronephrosis or renal calculi. Bladder: Grossly unremarkable for degree of distention. Bowel: The stomach is grossly normal in appearance. Sigmoid diverticulosis with wall thickening and pericolonic fat stranding. No evidence of perforation or ab scess. Normal appendix is visualized in the right lower quadrant without findings of appendicitis. Ascites: Absent Lymphadenopathy: No mesenteric, retroperitoneal or periportal lymphadenopathy. Abdominal wall and Mesentery: Unremarkable. Vasculature: The visualized abdominal aorta is normal in size and caliber. Musculoskeletal: No aggressive focal bony lesions, acute fractures or dislocation. Soft tissues: Unremarkable IMPRESSION: 1. Findings consistent with acute sigmoid diverticulitis. No evidence of perforation or abscess. Recommend follow-up with colonoscopy as an underlying mass cannot be excluded. Assessment/Plan Assessment/Plan Assessment: Diverticulitis of intestine, Intractable abdominal pain, Hyperlipidemia, Plan: Admit to Med-Surg, GI consult, IV antibiotics, IV hydration, Clear liquid diet, Protonix IV BID, Pain management, Home medications reconciled, Plan discussed with: Patient, Daughter My Orders Orders - HORTENCIA WALTERS Procedure Category Date Status Time Admit ADMIT 01/06/25 Transmitted 11:48 Code Status CODE 01/06/25 Transmitted 11:48 Hydrocodone-Acet PHA 01/06/25 Logged 5/325mg Tab ([place] 12:00 Ondansetron Hcl PHA 01/06/25 Logged (Zofran) 12:00 Docusate Sodium PHA 01/06/25 Logged Capsule ([place]ace 12:00 Complete Blood Count LAB 01/07/25 Verified 04:00 Comprehensive LAB 01/07/25 Verified Metabolic Panel 04:00 Condition: Serious [place] 01/06/25 In Process 11:48 Acetaminophen Tablet PHA 01/06/25 Logged (Tylenol Tablet) 12:00 Clear Liq Diet DIET 01/06/25 Transmitted Lunch Morphine Sulfate PHA 01/06/25 Logged Injection 12:00 Sodium Chloride 0.9% PHA 01/06/25 Logged 12:00 Metronidazole PHA 01/06/25 Logged 500mg/100ml (Flagyl 14:00 Ceftriaxone 1gm/50ml PHA 01/07/25 Logged D5w (Rocephin) 09:00 * [employer] Officer CONS 01/06/25 Verified 11:48 Pantoprazole PHA 01/06/25 Logged (Protonix) 22:00 Pantoprazole PHA 01/06/25 Logged (Protonix) 12:00 Montelukast Tablet PHA 01/06/25 Transmitted (Singulair Tablet) 22:00 Loratadine Tablet PHA 01/07/25 Transmitted (Claritin Tablet) 10:00 Date of Service: Jan 06, 2025 Billing Provider: HORTENCIA WALTESR Common Visit Codes: 65180-KEYPPFE INP/OBS CARE (MOD) HORTENCIA WALTERS Jan 06, 2025 12:03
[2025-01-06] MEDS: PANTOPRAZOLE 40 MG/10 ML VIAL INJ IV ONE (12:22)
[2025-01-06] MEDS: metroNIDAZOLE 500MG/100ML 100 ML IV ONE (12:23)
[2025-01-06 13:30] VITALS: BP 145/80; PULSE 67; RESP 17; TEMP 97.3; O2SAT 93
[2025-01-06 13:38] VITALS: BP 145/80; PULSE 67; RESP 17; TEMP 97.3; O2SAT 93
[2025-01-06] MEDS: metroNIDAZOLE 500MG/100ML 100 ML IV SCH (14:00)
--- NOTE | 2025-01-06 14:39 | DVHCONRES ---
Date Seen: Jan 06, 2025 Resident Creating Document: CLAY ROBERTSON RESIDENT Referring Physician Raquel Pathak FNP History of Present Illness Patient is 69 years old female with past medical history of asthma, hyperlipidemia, diverticulosis came with a complaint of abdominal pain. As per patient patient has been having left lower quadrant abdominal pain started yesterday, 8/10, initially intermittent then in the morning became constant, crampy in nature. Patient also reported having 3 loose bowel movement today, no blood. Patient was admitted at [facility] in May 2023 due to perforated diverticulitis and was conservatively treated. Patient had colono scopy done on November which revealed moderate sigmoid diverticular disease with a sigmoid muscular hypertrophy spasm and mild sigmoiditis from which biopsies, 2 tiny 1 mm sigmoid polyp, 1+ internal hemorrhoids. Biopsy revealed benign colonic mucosa with reactive lymphoid aggregates. Patient also had endoscopy on February 2023, showed 1 cm sliding hiatal hernia with the great a erosive gastritis, mild gastroduodenitis with a superficial erosions, multiple benign gastric polyps in the body of the stomach. Biopsy revealed chronic inactive gastritis with a focal intestinal metaplasia. Gastroesophageal junction biopsy revealed , columnar mucosa with mild reactive changes. CT scan of the abdomen revealed- Findings consistent with acute sigmoid diverticulitis. No evidence of perforation or abscess. Recommend follow-up with colonoscopy as an underlying mass cannot be excluded. Patient was seen at bedside at ER bed 6. Patient was admitted at [facility] in May 2023 due to perforated diverticulitis and was conservatively treated. Patient reported still ongoing abdominal pain but less than before CT scan of the abdomen acute sigmoid diverticulitis Patient on clear liquid diet Family History: Cardiac pacemaker G8 FATHER Diabetes mellitus G8 FATHER Glaucoma Hypercholesterolemia G8 MOTHER Hypertension G8 MOTHER G8 FATHER Allergies: Coded Allergies: NO KNOWN ALLERGIES (Unverified , 01/06/25) Home Meds Active Scripts Yeast (S. Boulardii)(S. Cerevi (Probiotic) 250 Mg Cap, 250 MG PO BID for 30 Days, #60 CAP Prov:BERNICE VARGAS MD 06/04/23 Reported Medications Ondansetron Odt 4MG Tab (ZOFRAN PO) 4 Mg Tb, 4 MG PO PRN, TAB ODT TAB-DISSOLVE IN MOUTH, THEN SWALLOW 11/20/23 Krill Oil ([place]-3 500 mg) 1 Cap Cap, 1000 MG PO DAILY, CAP 11/20/23 Albuterol Sulfate (Albuterol Sulfate) 2 Mg Tab, INH 08/04/22 Montelukast Sodium (MONTELUKAST SODIUM) 10 Mg Tab, 1 TAB PO HS 08/04/22 Cetirizine Hcl (EQ ALLERGY RELIEF) 10 Mg Tab, 10 MG PO, TAB 08/04/22 Biotin (Vitamin H) (Biotin) 1,000 Mcg Tab, 500 MCG PO, TAB 08/04/22 Cyanocobalamin (B12) 1,000 Mcg Tab, 2500 MCG PO 08/04/22 Discontinued Reported Medications Lisinopril & Hydrochlorothiazi (Zestoretic) 1 Tab Tab, 1 TAB PO DAILY, #30 TAB 5 Refills 08/11/18 Current Medications Current Medications Medications (Trade) Dose Ordered Sig/Feng Route PRN Reason Start Time Stop Time Status Last Admin Acetaminophen/ Hydrocodone Bitart ([place] 5/325MG Tab) 1 tab Q4HP PRN PO MODERATE PAIN (4-6 PAIN SCALE) 01/06/25 12:00 Ondansetron HCl (Zofran) 4 mg Q4HP PRN IV NAUSEA / VOMITING 01/06/25 12:00 Docusate Sodium (Colace Capsule) 100 mg BIDPRN PRN PO FOR CONSTIPATION 01/06/25 12:00 Acetaminophen (Tylenol Tablet) 650 mg Q6HP PRN PO PAIN SCALE 1-3 OR TEMP>100.4 01/06/25 12:00 Morphine Sulfate 2 mg Q4HPRN PRN IV SEVERE PAIN (7-10 PAIN SCALE) 01/06/25 12:00 Pantoprazole Sodium (Protonix) 40 mg BID IV 01/06/25 22:00 Metronidazole 100 ml @ 100 mls/hr Q8HR IV 01/06/25 14:00 Ceftriaxone Sodium 50 ml @ 100 mls/hr DAILY@09 IV 01/07/25 09:00 Montelukast Sodium (Singulair Tablet) 10 mg HS PO 01/06/25 22:00 Loratadine (Claritin Tablet) 10 mg DAILY PO 01/07/25 10:00 Vital Signs Vital Signs Date Time Temp Pulse Resp B/P (MAP) Pulse Ox O2 Delivery O2 Flow Rate FiO2 01/06/25 13:38 97.3 67 17 145/80 (101) 93 97.3 01/06/25 08:30 Room Air* 0 21 Labs/Diagnostic Data Labs Test 01/06/25 07:53 01/06/25 07:48 Range/Units White Blood Count 7.9 4.4-10.8 10^3/uL Red Blood Count 4.84 4.0-5.20 10^6/uL Hemoglobin 14.3 12.2-16.2 g/dL Hematocrit 41.4 36.0-46.0 % Mean Corpuscular Volume 85.5 80.0-100.0 fL Mean Corpuscular Hemoglobin 29.6 28.0-32.0 pg Mean Corpuscular Hemoglobin Concent 34.7 32.0-36.0 g/dL Red Cell Distribution Width 13.5 11.8-14.3 % Platelet Count 288 140-450 10^3/uL Mean Platelet Volume 8.8 6.9-10.8 fL Neutrophils (%) (Auto) 72.7 37.0-80.0 % Lymphocytes (%) (Auto) 18.5 10.0-50.0 % Monocytes (%) (Auto) 6.9 0.0-12.0 % Eosinophils (%) (Auto) 1.2 0.0-7.0 % Basophils (%) (Auto) 0.7 0.0-2.0 % Neutrophils # (Auto) 5.8 1.6-8.6 10 ^3/uL Lymphocytes # (Auto) 1.5 0.4-5.4 10 ^3/uL Monocytes # (Auto) 0.5 0-1.3 10 ^3/uL Eosinophils # (Auto) 0.1 0-0.8 10 ^3/uL Basophils # (Auto) 0.1 0-0.2 10 ^3/uL Nucleated Red Blood Cells 0.1 % Sodium Level 139 136-145 mmol/L Potassium Level 3.8 3.5-5.1 mmol/L Chloride Level 105 98-107 mmol/L Carbon Dioxide Level 25 20-31 mmol/L Anion Gap 9 5-15 Blood Urea Nitrogen 12 9-23 mg/dL Creatinine 0.74 0.550-1.02 mg/dL Glomerular Filtration Rate Calc 86 >90 mL/min BUN/Creatinine Ratio 16.2 10.0-20.0 Serum Glucose 96 74-106 mg/dL Calcium Level 10.3 8.7-10.4 mg/dL Troponin I High Sensitivity 4 </=34 ng/L Urine Color Light-yellow Yellow Urine Clarity Clear Clear Urine pH 6.0 5.0-9.0 Urine Specific [place] 1.015 1.001-1.035 Urine Protein Negative Negative Urine Ketones Negative Negative Urine Blood Trace H Negative /uL Urine Nitrite Negative Negative Urine Bilirubin Negative Negative Urine Urobilinogen Normal Negative mg/dL Urine Leukocyte Esterase Negative Negative /uL Urine RBC 2 0 - 4 /hpf Urine Microscopic WBC 1 0-5 /HPF Urine Squamous Epithelial Cells None seen <5 /hpf Urine Bacteria None seen None Seen /hpf Urine Glucose Normal Normal mg/dL Assessment Assessment and plan Acute sigmoid diverticulitis, no perforation Intractable abdominal pain likely due to acute diverticulitis Hyperlipidemia Asthma no exacerbation Plan Continue clear liquid diet Continue IV antibiotic Continue pantoprazole Avoid constipation Monitor CBC, BMP Plan discussed with Dr. Billie Love , nursing staff, Total time spent on patient evaluation, chart review, assessment and plan, discussion discussion >35 minutes Plan discussed with: Patient, Other (RN) CLAY ROBERTSON RESIDENT Jan 06, 2025 14:39
[2025-01-06 16:28] VITALS: BP 139/76; PULSE 55; RESP 20; TEMP 96; O2SAT 97
[2025-01-06] MEDS: HYDROcodone-ACET 5/325MG TAB PO PRN (18:38)
[2025-01-06 21:00] VITALS: BP 141/72; PULSE 60; RESP 18; TEMP 97.6; O2SAT 94
[2025-01-06] MEDS: PANTOPRAZOLE 40 MG/10 ML VIAL INJ IV SCH (21:49)
[2025-01-06] MEDS: MONTELUKAST SODIUM 10 MG TAB PO SCH (21:49)
[2025-01-07 01:00] VITALS: BP 106/51; PULSE 79; RESP 17; TEMP 97.7; O2SAT 94
[2025-01-07 05:00] VITALS: BP 128/69; PULSE 58; RESP 18; TEMP 97.6; O2SAT 98
[2025-01-07 06:47] LABS: Basophils # (auto) 0 10 ^3/uL (0-0.2); Basophils % (auto) 0.9 % (0.0-2.0); Eosinophils # (auto) 0.1 10 ^3/uL (0-0.8); Eosinophils % (auto) 2.6 % (0.0-7.0); Hematocrit 35.9 % (36.0-46.0); Hemoglobin 12.1 g/dL (12.2-16.2); Lymphocytes # (auto) 1.2 10 ^3/uL (0.4-5.4); Lymphocytes % (auto) 24.4 % (10.0-50.0); Mean Corpuscular Hemoglobin 29.1 pg (28.0-32.0); Mean Corpuscular Hgb Conc. 33.8 g/dL (32.0-36.0); Mean Corpuscular Volume 86.2 fL (80.0-100.0); Monocytes # (auto) 0.5 10 ^3/uL (0-1.3); Monocytes % (auto) 9.5 % (0.0-12.0); Neutrophils # (auto) 3.2 10 ^3/uL (1.6-8.6); Neutrophils % (auto) 62.6 % (37.0-80.0); Nucleated Red Blood Cells % 0.1 %; Platelet Count (auto) 253 10^3/uL (140-450); Red Blood Cells 4.16 10^6/uL (4.0-5.20); Red Cell Distribution Width 13.7 % (11.8-14.3); White Blood Cell 5.1 10^3/uL (4.4-10.8)
[2025-01-07 06:57] LABS: Alanine Aminotransferase 14 U/L (7-40); Albumin 4.1 g/dL (3.2-4.8); Alkaline Phosphatase 81 U/L (46-116); Anion Gap 7 (5-15); BUN/Creatinine Ratio 10.7 (10.0-20.0); Calcium 9.6 mg/dL (8.7-10.4); Carbon Dioxide 28 mmol/L (20-31); Chloride 105 mmol/L (98-107); Glucose 86 mg/dL (74-106); Potassium 3.8 mmol/L (3.5-5.1); Sodium 140 mmol/L (136-145); Total Protein 6.3 g/dL (5.7-8.2)
[2025-01-07 06:58] LABS: Aspartate Aminotransferase 10 U/L (<34); Bilirubin, Total 0.5 mg/dL (0.2-1.0); Blood Urea Nitrogen 8 mg/dL (9-23)
[2025-01-07 09:00] VITALS: BP 135/75; PULSE 60; RESP 18; TEMP 97.4; O2SAT 99
[2025-01-07] MEDS: cefTRIAXone 1GM/50ML D5W 50 ML IV SCH (09:52)
[2025-01-07] MEDS: LORATADINE 10 MG TAB PO SCH (09:54)
--- NOTE | 2025-01-07 10:26 | DVHPN2 ---
Progress Note Date Seen: Jan 07, 2025 Resident Creating Document: CLAY ROBERTSON RESIDENT Medical Necessity Reason Pt with a Central, PICC or Fol: No Subjective Review of Systems Patient was seen today at bedside Vitals stable Patient tolerating clear liquid diet well Pain has improved Objective vital signs Vital Sign Date Time Temp Pulse Resp B/P (MAP) Pulse Ox O2 Delivery O2 Flow Rate FiO2 01/07/25 09:00 97.4 60 18 135/75 (95) 99 97.4 01/06/25 20:00 Room Air* 0 21 Total Intake and Output 01/06/25 01/06/25 01/07/25 15:00 23:00 07:00 Intake Total 1150 ml 300 ml 700 ml Output Total 2 ml Balance 1150 ml 298 ml 700 ml medications Current Medications Medications Dose Ordered Sig/Feng Route Start Time Stop Time Status Last Admin Dose Admin Acetaminophen/ Hydrocodone Bitart 1 tab Q4HP PRN PO 01/06/25 12:00 01/06/25 18:38 1 TAB Ondansetron HCl 4 mg Q4HP PRN IV 01/06/25 12:00 Docusate Sodium 100 mg BIDPRN PRN PO 01/06/25 12:00 Acetaminophen 650 mg Q6HP PRN PO 01/06/25 12:00 Morphine Sulfate 2 mg Q4HPRN PRN IV 01/06/25 12:00 Pantoprazole Sodium 40 mg BID IV 01/06/25 22:00 01/07/25 09:54 40 MG Metronidazole 100 ml @ 100 mls/hr Q8HR IV 01/06/25 14:00 01/07/25 05:00 100 MLS/HR Ceftriaxone Sodium 50 ml @ 100 mls/hr DAILY@09 IV 01/07/25 09:00 01/07/25 09:52 100 MLS/HR Montelukast Sodium 10 mg HS PO 01/06/25 22:00 01/06/25 21:49 10 MG Loratadine 10 mg DAILY PO 01/07/25 10:00 01/07/25 09:54 10 MG laboratory and microbiology Laboratory Tests 01/07/25 05:57 Test 01/07/25 05:57 Range/Units Serum Glucose 86 74-106 mg/dL Problem List/Assessment/Plan Problem List/Assessment/Plan Assessment and plan Acute sigmoid diverticulitis, no perforation Intractable abdominal pain likely due to acute diverticulitis Hyperlipidemia Asthma no exacerbation Events Pain has improved Patient tolerating clear liquid diet well No nausea or vomiting Plan Patient is cleared to be discharged Patient can be discharged with oral antibiotic Patient was advised to continue liquid diet for next 7 days and gradually upgrade diet Patient was advised to follow up outpatient with the Gastroenterology Dr. Love in 2-3 weeks Plan discussed with Dr. Billie Love , nursing staff, Total time spent on patient evaluation, chart review, assessment and plan, discussion discussion >35 minutes Plan discussed with: Patient, Other (RN) Plan discussed with: Patient, Other (RN) CLAY ROBERTSON RESIDENT Jan 07, 2025 10:26
[2025-01-07 13:00] VITALS: BP 149/89; PULSE 66; RESP 18; TEMP 98.9; O2SAT 97
[2025-01-07 17:00] VITALS: BP 163/91; PULSE 67; RESP 20; TEMP 98.6; O2SAT 98
[2025-01-07] MEDS ORDERED: LEVO500T91 PO (17:52)
[2025-01-07] MEDS ORDERED: METR-344 PO (17:52)
--- NOTE | 2025-01-07 17:56 | DVHDS2 ---
Discharge Summary Date of Admission Jan 06, 2025 at 11:48 Date of Discharge: Jan 07, 2025 Admitting Diagnosis acute sigmoid diverticulitis Labs/Diagnostic Data: Laboratory Results Test 01/07/25 05:57 01/06/25 07:53 01/06/25 07:48 White Blood Count 5.1 10^3/uL (4.4-10.8) Red Blood Count 4.16 10^6/uL (4.0-5.20) Hemoglobin 12.1 g/dL (12.2-16.2) Hematocrit 35.9 % (36.0-46.0) Mean Corpuscular Volume 86.2 fL (80.0-100.0) Mean Corpuscular Hemoglobin 29.1 pg (28.0-32.0) Mean Corpuscular Hemoglobin Concent 33.8 g/dL (32.0-36.0) Red Cell Distribution Width 13.7 % (11.8-14.3) Platelet Count 253 10^3/uL (140-450) Mean Platelet Volume 8.7 fL (6.9-10.8) Neutrophils (%) (Auto) 62.6 % (37.0-80.0) Lymphocytes (%) (Auto) 24.4 % (10.0-50.0) Monocytes (%) (Auto) 9.5 % (0.0-12.0) Eosinophils (%) (Auto) 2.6 % (0.0-7.0) Basophils (%) (Auto) 0.9 % (0.0-2.0) Neutrophils # (Auto) 3.2 10 ^3/uL (1.6-8.6) Lymphocytes # (Auto) 1.2 10 ^3/uL (0.4-5.4) Monocytes # (Auto) 0.5 10 ^3/uL (0-1.3) Eosinophils # (Auto) 0.1 10 ^3/uL (0-0.8) Basophils # (Auto) 0 10 ^3/uL (0-0.2) Nucleated Red Blood Cells 0.1 % Sodium Level 140 mmol/L (136-145) Potassium Level 3.8 mmol/L (3.5-5.1) Chloride Level 105 mmol/L (98-107) Carbon Dioxide Level 28 mmol/L (20-31) Anion Gap 7 (5-15) Blood Urea Nitrogen 8 mg/dL (9-23) Creatinine 0.75 mg/dL (0.550-1.02) Glomerular Filtration Rate Calc 85 mL/min (>90) BUN/Creatinine Ratio 10.7 (10.0-20.0) Serum Glucose 86 mg/dL (74-106) Calcium Level 9.6 mg/dL (8.7-10.4) Total Bilirubin 0.5 mg/dL (0.2-1.0) Aspartate Amino Transferase (AST) 10 U/L (<34) Alanine Aminotransferase (ALT) 14 U/L (7-40) Alkaline Phosphatase 81 U/L (46-116) Total Protein 6.3 g/dL (5.7-8.2) Albumin 4.1 g/dL (3.2-4.8) Troponin I High Sensitivity 4 ng/L (</=34) Lipase 41 U/L (12-53) Urine Color Light-yellow (Yellow) Urine Clarity Clear (Clear) Urine pH 6.0 (5.0-9.0) Urine Specific [place] 1.015 (1.001-1.035) Urine Protein Negative (Negative) Urine Ketones Negative (Negative) Urine Blood Trace /uL (Negative) Urine Nitrite Negative (Negative) Urine Bilirubin Negative (Negative) Urine Urobilinogen Normal mg/dL (Negative) Urine Leukocyte Esterase Negative /uL (Negative) Urine RBC 2 /hpf (0 - 4) Urine Microscopic WBC 1 /HPF (0-5) Urine Squamous Epithelial Cells None seen /hpf (<5) Urine Bacteria None seen /hpf (None Seen) Urine Glucose Normal mg/dL (Normal) Other Laboratory Tests 01/07/25 05:57 Brief Hx & Hospital Course: Patient is 69 years old female with past medical history of asthma, hyperlipidemia, diverticulosis came with a complaint of abdominal pain. As per patient patient has been having left lower quadrant abdominal pain started yesterday, 8/10, initially intermittent then in the morning became constant, crampy in nature. Patient also reported having 3 loose bowel movement today, no blood. Patient was admitted at [facility] in May 2023 due to perforated diverticulitis and was conservatively treated. Patient had colonoscopy done on November which revealed moderate sigmoid diverticular disease with a sigmoid muscular hypertrophy spasm and mild sigmoiditis from which biopsies, 2 tiny 1 mm sigmoid polyp, 1+ internal hemorrhoids. Biopsy revealed benign colonic mucosa with reactive lymphoid aggregates. Patient also had endoscopy on February 2023, showed 1 cm sliding hiatal hernia with the great a erosive gastritis, mild gastroduodenitis with a superficial erosions, multiple benign gastric polyps in the body of the stomach. Biopsy revealed chronic inactive gastritis with a focal intestinal metaplasia. Gastroesophageal junction biopsy revealed , columnar mucosa with mild reactive changes. CT scan of the abdomen revealed- Findings consistent with acute sigmoid diverticulitis. No evidence of perforation or abscess. Recommend follow-up with colonoscopy as an underlying mass cannot be excluded. Patient is being discharged home on Levaquin and Flagyl PO for 14 days with a clear liquid diet. Patient can advance in 2 weeks. Patient reports abdominal pain has resolved. Condition at Discharge: Poor Final Diagnosis/Problems List acute sigmoid diverticulitis- Clear Liquid diet Discharge Disposition: Home Discharge Instruct/Medications Diet: See Comment Diet comment: Clear Liquid Diet Activity: Light activity Follow Up/Referral: Dr. Sanchez Love in 3-4 weeks Medications: Levaquin and Flagyl Discharge Statement: "Patient was advised to return to the ER or call 911 if any headaches, dizziness, shortness of breath, chest pain, abdominal pain, bleeding, fevers, or worsening of medical condition. Patient was counseled about treatment plan, medications, possible side effects, patientverbalized understanding. All questions were answered to the best of my ability. This discharge took greater then 30 minutes in planning, reviewing documentation, counseling the patient, and discussing with other team members." ASSESSMENT ASSESSMENT Assessment Date of Service: Jan 07, 2025 Billing Provider: BERNICE VARGAS MD Common Visit Codes: 00327-ZDF/OBS DISCH DAY >30min BERNICE VARGAS MD Jan 07, 2025 17:56
[2025-01-07 19:29] VITALS: BP 163/91; PULSE 67; RESP 20; TEMP 37; O2SAT 98
== END 2025-01-07 20:35 | disposition home or self-care (01) | DRG 392 ==
LOC: ER 07:44 → OVERFLOW 11:48 → WEST WING 13:15
PROVIDERS: ADMIT Internal Medicine; ATTEND Internal Medicine
DX: K57.32 Diverticulitis of large intestine without perforation or abscess without bleeding (principal); E78.5 Hyperlipidemia, unspecified; I10 Essential (primary) hypertension; Z83.3 Family history of diabetes mellitus; Z82.49 Family history of ischemic heart disease and other diseases of the circulatory system; Z83.49 Family history of other endocrine, nutritional and metabolic diseases; Z83.511 Family history of glaucoma
CPT/HCPCS: 36415; 74177; 80048; 80053; 81001; 83690; 84484; 85025; 96365; 96375; 99291; G0378; J2405; J2470; J3490

== ENCOUNTER → 2025-05-13 | Outpatient (CLI) | payer OTHER ==
[~2025-05-13] MED LIST changes: +LEVO500T91 PO; -LISI20TA60 PO; +METR-344 PO
[2025-05-13 08:48] LABS: Hematocrit 41.4 % (36.0-46.0); Hemoglobin 14.4 g/dL (12.2-16.2); Mean Corpuscular Hemoglobin 30.2 pg (28.0-32.0); Mean Corpuscular Volume 86.9 fL (80.0-100.0); Nucleated Red Blood Cells % 0.1 %
[2025-05-13 10:04] LABS: Urine Protein, UAD Negative (Negative)
[2025-05-13 11:03] LABS: Alanine Aminotransferase 23 U/L (7-40); Alkaline Phosphatase 98 U/L (46-116); Anion Gap 9 (5-15); BUN/Creatinine Ratio 11.1 (10.0-20.0); Calcium 10.0 mg/dL (8.7-10.4); Carbon Dioxide 29 mmol/L (20-31); Chloride 101 mmol/L (98-107); Glucose 90 mg/dL (74-106); Potassium 4.4 mmol/L (3.5-5.1); Sodium 139 mmol/L (136-145); Total Protein 7.6 g/dL (5.7-8.2)
[2025-05-13 11:04] LABS: Albumin 4.8 g/dL (3.2-4.8); Bilirubin, Total 0.6 mg/dL (0.2-1.0)
[2025-05-13 11:29] LABS: Blood Urea Nitrogen 8 mg/dL (9-23)
[2025-05-13 11:40] LABS: Iron 137.0 ug/dL (50-170)
[2025-05-13 11:43] LABS: Total Iron Binding Capacity 311.0 ug/dL (250-425)
[2025-05-13 15:31] LABS: Triglycerides 276 mg/dL (< 150)
[2025-05-13 15:32] LABS: HDL Cholesterol 51 mg/dL (40-59)
[2025-05-13 15:33] LABS: Cholesterol 241 mg/dL (< 200)
== END | disposition home or self-care (01) ==
LOC: LAB 08:05
PROVIDERS: ATTEND Internal Medicine
DX: E78.5 Hyperlipidemia, unspecified (principal); R73.03 Prediabetes
CPT/HCPCS: 36415; 80053; 80061; 81001; 82043; 82570; 82728; 83036; 83540; 83550; 85025

== ENCOUNTER 2025-07-08 07:59 | Outpatient (CLI) | payer OTHER ==
[2025-07-08 08:43] LABS: HDL Cholesterol 48 mg/dL (40-59)
[2025-07-08 08:44] LABS: Cholesterol 222 mg/dL (< 200); Triglycerides 296 mg/dL (< 150)
== END 2025-07-08 17:00 | disposition home or self-care (01) ==
LOC: LAB 07:59
PROVIDERS: ATTEND Internal Medicine
DX: E78.5 Hyperlipidemia, unspecified (principal)
CPT/HCPCS: 36415; 80061

== ENCOUNTER 2025-07-13 16:13 | Inpatient (IN) | payer OTHER ==
[~2025-07-13] VITALS: Ht 157.5 cm; Wt 76.0 kg
[2025-07-13 18:01] VITALS: PULSE 58; RESP 19; O2SAT 95
[2025-07-13] MEDS: SODIUM CHLORIDE 0.9% 1,000 ML IV SCH ×2 (18:15→21:30)
--- NOTE | 2025-07-13 18:49 | DVHINCON2 ---
Date of service: Jul 13, [address] Segovia Reason for Consultation Possible stroke History of Present Illness Ms. Hooks is a 70 years old right-handed female with a history of hypertension, dyslipidemia, asthma, COVID-19, he came to the [facility] on 07/13 25 with a chief complaint of right facial numbness. At this time, he is alert and fully oriented provided the following history For about one week ago, she has numbness/a weird feeling in the left face, she reports tearing from the left eye, no hearing change, no taste changes. She has chronic bilateral tinnitus, which has no changes she denies weakness numbness in the extremities, she has never had similar problem before, he denies history of stroke Overall her symptoms are better now He snores, but not loud, and not every night, sometimes he wakes up not well refreshed, she has low energy level in the afternoon CBC, 05/13/2025: Unremarkable BMP 05/13/2025: Unremarkable HGB A1c, 05/13/2025: 5.6 Liver function tests, 05/13/2025: Unremarkable TG/HDL/LDL/HDL, 07/08/2025: 296/222/120/48 Vitamin B12, 02/06/24: 7061 TSH, 12/21/2024: 0.76 Past Medical History Hypertension, dyslipidemia, asthma, COVID-19, no heart disease Past Surgical History Hernia repair Family History: Cardiac pacemaker G8 FATHER Diabetes mellitus G8 FATHER Glaucoma Hypercholesterolemia G8 MOTHER Hypertension G8 MOTHER G8 FATHER Family History Hypertension, diabetes, dyslipidemia, heart disease Social History No history of tobacco smoking, drug or alcohol abuse Allergies: Coded Allergies: NO KNOWN ALLERGIES (Unverified , 01/06/25) Home Meds Active Scripts Metronidazole (Flagyl) 500 Mg Tab, 500 MG PO TID for 14 Days, #42 TAB Prov:BERNICE VARGAS MD 01/07/25 Levofloxacin Hemihydrate (LEVAQUIN 500 MG) 500 Mg Tab, 500 MG PO DAILY for 14 Days, #14 TAB Prov:BERNICE VARGAS MD 01/07/25 Yeast (S. Boulardii)(S. Cerevi (Probiotic) 250 Mg Cap, 250 MG PO BID for 30 Days, #60 CAP Prov:BERNICE VARGAS MD 06/04/23 Reported Medications Ondansetron Odt 4MG Tab (ZOFRAN PO) 4 Mg Tb, 4 MG PO PRN, TAB ODT TAB-DISSOLVE IN MOUTH, THEN SWALLOW 11/20/23 Krill Oil ([place]-3 500 mg) 1 Cap Cap, 1000 MG PO DAILY, CAP 11/20/23 Albuterol Sulfate (Albuterol Sulfate) 2 Mg Tab, INH 08/04/22 Montelukast Sodium (MONTELUKAST SODIUM) 10 Mg Tab, 1 TAB PO HS 08/04/22 Cetirizine Hcl (EQ ALLERGY RELIEF) 10 Mg Tab, 10 MG PO, TAB 08/04/22 Biotin (Vitamin H) (Biotin) 1,000 Mcg Tab, 500 MCG PO, TAB 08/04/22 Cyanocobalamin (B12) 1,000 Mcg Tab, 2500 MCG PO 08/04/22 Current Medications Current Medications Medications (Trade) Dose Ordered Sig/Feng Route PRN Reason Start Time Stop Time Status Last Admin Sodium Chloride 1,000 ml @ 75 mls/hr [id number] IV 07/13/25 18:15 Aspirin 81 mg DAILY PO 07/14/25 10:00 Review of Systems As above, the other systems are negative Physical Exam GENERAL EXAM: General: the patient is well developed and nourished. No acute distress. HEENT: Normocephalic, neck is supple, no carotid bruits. No mass. RESPIRATORY: Normal respiratory effort with symmetrical lung expansion. Lungs clear to auscultation. CARDIOVASCULAR: Regular rate and rhythm with no murmurs. S1, S2. ABDOMEN: Soft, nontender, normal bowel sound. No skin rash in the years or bilateral ears, head or face NEUROLOGICAL: MENTAL STATUS: Awake and alert. Oriented to person, place, time and general circumstances. Able to give personal history SPEECH, LANGUAGE, HIGHER CORTICAL FUNCTION: no aphasia or dysathria. CRANIAL NERVES: #2: Intact visual salas to confrontation. The optic discs were sharp. #3,4,6: Pupils are equal, round and reactive. EOMs full and conjugate. #5: Facial sensation intact in all three divisions bilaterally. Mandibular strength intact. #7: Slight left facial weakness, no clear evidence of lower motor neuron disease, taste is normal in the tongue #8: Hearing grossly normal to voice. #9,10: Uvula and soft palate rise in the midline. Swallow and voice are normal. #11: Trapezius and sternomastoid strength intact bilaterally. #12: Tongue midline. No fasciculations or atrophy. SENSATION: Sensation to touch and pinprick is normal. MOTOR: Normal tone in the upper and lower extremity. Normal muscle bulk. No fasciculations. No abnormal movements or posturing. Muscle strength of the major groups in the upper extremities is 5/5. Muscle strength of the major groups in the lower extremities is 5/5. REFLEXES: Deep tendon reflexes normal and symmetrical. No pathological reflexes. CEREBELLAR/COORDINATION: Finger to nose and heel to [place] are normal bilaterally. GAIT/STATION: deferred Assessment Left facial numbness weakness Landrum's palsy Stroke Plan/Recommendation Monitoring Supportive treatment Telemetry Carotid Doppler Echocardiogram MR brain Prednisone 60 mg daily for 10 days, followed by Medrol-Dosepak (discontinue if the patient is found to have stroke) Aspirin 81 mg daily, discontinue if stroke is not confirmed Lipitor 20 mg daily GI prophylaxis Further address sleep-related breathing disorder as outpatient Plan discussed with: Patient, Spouse, Other CHADWICK COOLEY MD Jul 13, 2025 18:49
[2025-07-13 20:00] VITALS: PULSE 64; RESP 17; O2SAT 95
[2025-07-13] MEDS ORDERED: LORazepam 2MG/ML-1ML VIAL IV PRN (20:00)
--- NOTE | 2025-07-13 20:19 | DVH ---
Carotid Duplex Date: 07/13/2025 07:39 PM CLINICAL HISTORY: ASSESS BLOOD FLOW / STROKE COMPARISON: US CAROTID DUPLX W COLOR DOP on DOS: 10/02/24 TECHNIQUE: Duplex Doppler evaluation of the extracranial carotid and vertebral arteries including color Doppler and spectral/pulsed waveform analysis was performed. FINDINGS: RIGHT SIDE: The peak systolic velocities are 83.1 cm/s in the distal CCA and 78.5 cm/s in the proximal ICA.The ICA/CCA ratio is less than 1. The external carotid artery is patent with peak systolic velocity of 96.8 cm/s proximally. There is appropriate antegrade flow in the right vertebral artery. LEFT SIDE: The peak systolic velocities are 75.7 cm/s in the distal CCA and 82.4 cm/s in the proximal ICA.. The ICA/CCA ratio is less than 2. The external carotid artery is patent with peak systolic velocity of 81 cm/s proximally. There is appropriate antegrade flow in the left vertebral artery. IMPRESSION: 1. No hemodynamically significant stenosis noted in the right carotid system. 2. No hemodynamically significant stenosis noted in the left carotid system. 3. Reference: Radiology 2003; 229:[id number]
[2025-07-13 21:00] VITALS: BP 137/75; PULSE 64; RESP 17; TEMP 98.3; O2SAT 95
[2025-07-13] MEDS ORDERED: ACETAMINOPHEN 325 MG TAB PO PRN (21:30)
[2025-07-13] MEDS ORDERED: hydrALAZINE HCL 20 MG/ML VL IV PRN (21:30)
[2025-07-13] MEDS ORDERED: NITROGLYCERIN 0.4 MG SL TAB SL PRN (21:30)
[2025-07-13] MEDS ORDERED: MORPHINE SULFATE INJ 2 MG/ml SYRG IV PRN (21:30)
[2025-07-13] MEDS ORDERED: HYDROcodone-ACET 5/325MG TAB PO PRN (21:30)
[2025-07-13] MEDS ORDERED: ONDANSETRON HCL 4 MG/2 ML VIAL IV PRN (21:30)
[2025-07-13] MEDS ORDERED: DOCUSATE SOD 100 MG CAP PO PRN (21:30)
--- NOTE | 2025-07-13 21:30 | DVHHP2 ---
History of Present Illness Reason for Visit: Left facial numbness History of Present Illness The patient is a 70-year-old female with past medical history of hyperlipidemia, hypertension, asthma, and COVID-19 who presented to [facility] ED from Dr. Martins with chief complaint of right facial numbness. Patient reports that she has been experiencing left facial numbness, weakness, tearing from left for the past 1 week. Patient reports that sometimes she wakes up not not feeling well with low energy level. Patient was seen and evaluated in the ED, blood pressure 137/75, heart rate 64, temperature 98.3 F, O2 saturation 97% on room air. Carotid Doppler study shows no hemodynamically significant stenosis noted in the right carotid system or left carotid system. Please see medication orders section in the computer. On my assessment, patient denied chest pain, no headache, dizziness, diaphoresis, shortness of breaths, no diarrhea, nausea, vomiting, fever, no chills. Patient was admitted for further evaluation and medical management. Past Medical History Hypertension, HLD, Asthma, COVID-19. Past Surgical History Denies all surgeries Family History Reviewed, noncontributory to the management of this case. Past Social History The patient lives at home, denies smoking, alcohol or illicit drugs abuse. Review of Systems Constitutional: Yes: Weakness; No: Fever, Chills, Sweats, Malaise, Other Eyes: No: Pain, Vision change, Conjunctivae inflammation, Eyelid inflammation, Other, Redness ENT: No: Ear pain, Ear discharge, Nose pain, Nose discharge, Nose congestion, Mouth pain, Mouth swelling, Throat pain, Throat swelling, Other Respiratory: No: Cough, Dry, Shortness of breath, SOB with excertion, Wheezing, Hemoptysis, Pleuritic Pain, Sputum, Wheezing, Other Cardiovascular: No: Chest Pain, Palpitations, Orthopnea, Paroxysmal Noc. Dyspnea, Edema, Lt Headedness, Other Gastrointestinal: No: Nausea, Vomiting, Abdominal Pain, Diarrhea, Constipation, Melena, Hematochezia, Other Genitourinary: No Dysuria, No Frequency, No Incontinence, No Hematuria, No Retention, No Other Musculoskeletal: No: other, neck pain, shoulder pain, arm pain, back pain, hand pain, leg pain, foot pain Skin: No: Rash, Lesions, Jaundice, Bruising, Other Neurological: Other (Left facial numbness weakness ); No: Weakness, Numbness, Incoordination, Change in speech, Confusion, Seizures Allergies: Coded Allergies: NO KNOWN ALLERGIES (Unverified , 01/06/25) Medications Current Medications Medications Dose Ordered Sig/Feng Route Start Time Stop Time Status Last Admin Dose Admin Sodium Chloride 1,000 ml @ 75 mls/hr [id number] IV 07/13/25 18:15 07/13/25 18:15 75 MLS/HR Aspirin 81 mg DAILY PO 07/14/25 10:00 Lorazepam 1 mg ONCE PRN IV 07/13/25 20:00 UNV Prednisone 60 mg DAILY PO 07/14/25 10:00 07/22/25 23:00 UNV Pantoprazole Sodium 40 mg DAILY PO 07/14/25 10:00 UNV Aspirin 81 mg DAILY PO 07/14/25 10:00 UNV Atorvastatin Calcium 20 mg HS PO 07/13/25 22:00 UNV Exam Vital Signs Vital Signs Date Time Temp Pulse Resp B/P (MAP) Pulse Ox O2 Delivery O2 Flow Rate FiO2 07/13/25 18:01 58 19 95 Room Air* 0 21 General Appearance: Alert, Oriented X3, Cooperative, No acute distress HEENT: Atraumatic, PERRLA, EOMI, Mucous membr. moist/pink Respiratory: Clear to auscultation, Normal air movement Cardiovascular: Regular rate, Normal S1, Normal S2, No murmurs Abdominal: Normal bowel sounds, Soft, No tenderness, No hepatospenomegaly, No masses Extremities: No clubbing, No cyanosis, No edema, Normal pulses, No tenderness/swelling Skin: No rashes, No significant lesion Neuro: Normal speech, Normal tone, Sensation intact, Cranial nerves 3-12 NL, Reflexes 2+, Other (Generalized weakness) Psych/Mental Status: Mental status NL, Mood NL Labs/Xrays PATIENT: ARTURO KAMINSKI ACCT: [id number] UNIT: [id number] : 1955 LOC: [facility] AGE / SEX: 70 / F ADM STATUS: ADM IN SERVICE 09 ORDERING PHYSICIAN: VONDA MARTINS MD PROCEDURE(s): CARCL - CAROTID DUPLX W COLOR DOP REASON: ASSESS BLOOD FLOW / STROKE ORDER NUMBER(s): [id number], ACCESSION NUMBER(s): [id number] Carotid Duplex Date: 07/13/2025 07:39 PM CLINICAL HISTORY: ASSESS BLOOD FLOW/STROKE COMPARISON: US CAROTID DUPLX W COLOR DOP on DOS: 10/02/24 TECHNIQUE: Duplex Doppler evaluation of the extracranial carotid and vertebral arteries including color Doppler and spectral/pulsed waveform analysis was performed. FINDINGS: RIGHT SIDE: The peak systolic velocities are 83.1 cm/s in the distal CCA and 78.5 cm/s in the proximal ICA.The ICA/CCA ratio is less than 1. The external carotid artery is patent with peak systolic velocity of 96.8 cm/s proximally. There is appropriate antegrade flow in the right vertebral artery. LEFT SIDE: The peak systolic velocities are 75.7 cm/s in the distal CCA and 82.4 cm/s in the proximal ICA. The ICA/CCA ratio is less than 2. The external carotid artery is patent with peak systolic velocity of 81 cm/s proximally. There is appropriate antegrade flow in the left vertebral artery. IMPRESSION: 1. No hemodynamically significant stenosis noted in the right carotid system. 2. No hemodynamically significant stenosis noted in the left carotid system. 3. Reference: Radiology 2003; [id number] SEPSIS Sepsis Screen Date sepsis recognized/suspect: Jul 13, 2025 Physician Orders Carotid Duplx W Color Dop (07/13/25 18:10) Brain Head Wo Contrast (07/13/25 18:10) Cardiac Diet-2gna,Lofat,Lochol (07/13/25 Dinner) * Neurology Consult (07/13/25 18:10) Sodium Chloride 0.9% (07/13/25 18:15) Aspirin Chewable Tablet (07/14/25 10:00) Echo 2d Mode Cardiac Dop (07/13/25 19:49) Lorazepam 2mg/Ml Inj (Ativan Inj) (07/13/25 20:00) Prednisone Tablet (07/13/25 20:00) Prednisone Tablet (07/14/25 10:00) Pantoprazole Tablet (Protonix Tablet) (07/14/25 10:00) Aspirin Enteric Coated Tablet (Ecotrin E (07/14/25 10:00) Atorvastatin (Lipitor) (07/13/25 20:00) Atorvastatin (Lipitor) (07/13/25 22:00) Complete Blood Count (07/13/25 21:22) Comprehensive Metabolic Panel (07/13/25 21:22) Hydralazine Injection (Apresoline Inject (07/13/25:30) Admit (07/13/25 21:22) Allergies (07/13/25:22) Code Status (07/13/25:22) 0.9% Ns 1000 Ml (07/13/25:30) Oxygen Per Hour (07/13/25 21:22) Hydrocodone-Acet 5/325mg Tab (Bureau 5/32 (07/13/25 21:30) Ondansetron Hcl (Zofran) (07/13/25:30) Docusate Sodium Capsule (Colace Capsule) (07/13/25:30) Complete Blood Count (07/14/25 04:00) Comprehensive Metabolic Panel (07/14/25 04:00) Condition: Serious (07/13/25:22) Acetaminophen Tablet (Tylenol Tablet) (07/13/25 21:30) Maintain Bed Rest (07/13/25:22) Nitroglycerin Sublingual (Ntrostat Subli (07/13/25:30) Morphine Sulfate Injection (07/13/25:30) Stat Ekg For Chest Pain (07/13/25:22) Notify Md Of Changes From Base (07/13/25 21:22) Actuarial Clerk For 24 Hours (07/13/25 21:22) Emergency Dysrhythmia Protocol (07/13/25:22) Rhythm Strips Once Every Shift (07/13/25 21:22) Oxygen By Nasal Cannula (07/13/25:22) Vital Signs Date Time Temp Pulse Resp B/P (MAP) Pulse Ox O2 Delivery O2 Flow Rate FiO2 07/13/25 18:01 58 19 95 Room Air* 0 21 Medications Medications Dose Ordered Sig/Feng Route Start Time Stop Time Status Last Admin Dose Admin Sodium Chloride 1,000 ml @ 75 mls/hr [id number] IV 07/13/25 18:15 07/13/25 18:15 75 MLS/HR Assessment/Plan Assessment/Plan Left facial numbness Generalized weakness Plan 1. Admit to telemetry unit 2. Breathing treatment 3. Pain control management 4. Management of fluids and electrolytes 5. Consultation for Neurology 6. Diagnostic tests head CT 7. DVT prophylaxis-on aspirin 8. Repeat labs CBC, CMP in a.m. 9. Continue with current medical management 10. Treatment plan discussed with patient and RN. Patient verbalized understanding. Plan discussed with: Patient, Other (RN) My Orders Orders - CHRISTIANE GUZMAN DNP Procedure Category Date Status Time Complete Blood Count LAB 07/13/25 Transmitted 21:22 Comprehensive LAB 07/13/25 Transmitted Metabolic Panel 21:22 Hydralazine Injection PHA 07/13/25 Transmitted (Apresoline Inject 21:30 Admit ADMIT 07/13/25 Transmitted 21:22 Allergies LENO 07/13/25 In Process 21:22 Code Status CODE 07/13/25 Transmitted 21:22 0.9% Ns 1000 Ml PHA 07/13/25 Transmitted 21:30 Oxygen Per Hour RT 07/13/25 Transmitted 21:22 Hydrocodone-Acet PHA 07/13/25 Transmitted 5/325mg Tab (Bureau 21:30 Ondansetron Hcl PHA 07/13/25 Transmitted (Zofran) 21:30 Docusate Sodium PHA 07/13/25 Transmitted Capsule (Colace 21:30 Complete Blood Count LAB 07/14/25 Verified 04:00 Comprehensive LAB 07/14/25 Verified Metabolic Panel 04:00 Condition: Serious LNEO 07/13/25 In Process 21:22 Acetaminophen Tablet PHA 07/13/25 Transmitted (Tylenol Tablet) 21:30 Maintain Bed Rest LENO 07/13/25 In Process 21:22 Nitroglycerin PHA 07/13/25 Transmitted Sublingual (Ntrostat 21:30 Morphine Sulfate PHA 07/13/25 Transmitted Injection 21:30 Stat Ekg For Chest [facility]ENO 07/13/25 In Process Pain 21:22 Notify Md Of Changes [facility] [place] 07/13/25 In Process From Base 21:22 Actuarial Clerk For [facility] 07/13/25 In Process 24 Hours 21:22 Emergency Dysrhythmia [facility] [place] 07/13/25 In Process Protocol 21:22 Rhythm Strips Once [facility] [place] 07/13/25 In Process Every Shift 21:22 Oxygen By Nasal RT 07/13/25 Transmitted Cannula 21:22 Problem List: (1) Left facial numbness (2) Generalized weakness Date of Service: Jul 13, 2025 Billing Provider: CHRISTIANE GUZMAN DNP Common Visit Codes: 42052-[id number] INP/OBS CARE (HIGH) CHRISTIANE GUZMAN DNP Jul 13, 2025 21:30
[2025-07-13 22:33] LABS: Hematocrit 39.8 % (36.0-46.0); Hemoglobin 13.5 g/dL (12.2-16.2); Mean Corpuscular Hemoglobin 29.6 pg (28.0-32.0); Mean Corpuscular Volume 87.3 fL (80.0-100.0); Nucleated Red Blood Cells % 0.2 %
[2025-07-13 23:08] LABS: Alanine Aminotransferase 16 U/L (7-40); Albumin 4.3 g/dL (3.2-4.8); Alkaline Phosphatase 97 U/L (46-116); Anion Gap 7 (5-15); BUN/Creatinine Ratio 15.0 (10.0-20.0); Bilirubin, Total 0.3 mg/dL (0.2-1.0); Blood Urea Nitrogen 9 mg/dL (9-23); Calcium 9.2 mg/dL (8.7-10.4); Carbon Dioxide 26 mmol/L (20-31); Chloride 101 mmol/L (98-107); Glucose 93 mg/dL (74-106); Potassium 4.1 mmol/L (3.5-5.1); Sodium 134 mmol/L (136-145); Total Protein 7.0 g/dL (5.7-8.2)
[2025-07-13] MEDS: predniSONE 20 MG TAB PO ONE (23:21)
[2025-07-13] MEDS: ATORVASTATIN 20 MG TAB PO ONE (23:21)
[2025-07-14 01:00] VITALS: BP 150/76; PULSE 62; RESP 19; TEMP 97.5; O2SAT 98
[2025-07-14 05:00] VITALS: BP 131/67; PULSE 71; RESP 17; TEMP 97.9; O2SAT 95
[2025-07-14] MEDS: PANTOPRAZOLE 40 MG TAB PO SCH (06:28)
[2025-07-14 07:12] LABS: Hematocrit 41.0 % (36.0-46.0); Hemoglobin 14.0 g/dL (12.2-16.2); Mean Corpuscular Hemoglobin 29.9 pg (28.0-32.0); Mean Corpuscular Volume 88.0 fL (80.0-100.0); Nucleated Red Blood Cells % 0.1 %
[2025-07-14 07:27] LABS: Alanine Aminotransferase 18 U/L (7-40); Alkaline Phosphatase 98 U/L (46-116); Anion Gap 11 (5-15); BUN/Creatinine Ratio 12.3 (10.0-20.0); Calcium 9.7 mg/dL (8.7-10.4); Carbon Dioxide 23 mmol/L (20-31); Chloride 102 mmol/L (98-107); Potassium 4.4 mmol/L (3.5-5.1); Sodium 136 mmol/L (136-145); Total Protein 7.3 g/dL (5.7-8.2)
[2025-07-14 07:28] LABS: Albumin 4.6 g/dL (3.2-4.8); Bilirubin, Total 0.5 mg/dL (0.2-1.0)
[2025-07-14 07:29] LABS: Blood Urea Nitrogen 8 mg/dL (9-23); Glucose 125 mg/dL (74-106)
--- NOTE | 2025-07-14 08:58 | DVH ---
EXAM: MRI BRAIN HEAD WO CONTRAST HISTORY: POSSIBLE CVA COMPARISON: CT scan 10/30/2024 TECHNIQUE: MRI was performed utilizing multiple appropriate imaging planes and pulse sequences. FINDINGS: SUPRATENTORIAL REGION: No evidence for acute ischemia or intracranial hemorrhage. Scattered ill-defined FLAIR hyperintensities are noted within the bilateral periventricular region, galan radiata and subcortical white matter. POSTERIOR FOSSA: Unremarkable. BRAINSTEM: Unremarkable. SELLAR/SUPRASELLAR REGION: Unremarkable. VENTRICLES, CISTERNS, SULCI: Age-appropriate. ORBITS: Unremarkable. PARANASAL SINUSES: Unremarkable. MASTOID AIR CELLS: Unremarkable. VASCULATURE: Unremarkable. BONES/ SOFT TISSUES: Unremarkable. OTHER: None. IMPRESSION: 1. No acute intracranial process identified. 2. Scattered nonspecific FLAIR hyperintense foci in the bilateral cerebral white matter without restricted diffusion typically reflect chronic microvascular ischemic changes. The differential diagnosis includes hypoxic/ischemic etiologies (atherosclerotic, hypertension, migraine), inflammatory/infectious etiologies (demyelination disorders) or other. Recommend clinical correlation and further evaluation as clinically warranted.
[2025-07-14 09:00] VITALS: BP 158/91; PULSE 68; RESP 17; TEMP 97.4; O2SAT 98
[2025-07-14] MEDS: ASPirin-EC 81 mg tab PO SCH (09:14)
[2025-07-14] MEDS: predniSONE 20 MG TAB PO SCH (09:20)
[2025-07-14] MEDS: hydrALAZINE HCL 20 MG/ML VL IV PRN (10:23)
[2025-07-14] MEDS ORDERED: PRED10TA PO (11:02)
--- NOTE | 2025-07-14 11:05 | DVHDS2 ---
Discharge Summary Date of Admission Jul 13, 2025 at 17:06 Date of Discharge: Jul 14, 2025 Labs/Diagnostic Data: Laboratory Results Test 07/14/25 06:02 White Blood Count 4.3 10^3/uL (4.4-10.8) Red Blood Count 4.66 10^6/uL (4.0-5.20) Hemoglobin 14.0 g/dL (12.2-16.2) Hematocrit 41.0 % (36.0-46.0) Mean Corpuscular Volume 88.0 fL (80.0-100.0) Mean Corpuscular Hemoglobin 29.9 pg (28.0-32.0) Mean Corpuscular Hemoglobin Concent 34.0 g/dL (32.0-36.0) Red Cell Distribution Width 13.5 % (11.8-14.3) Platelet Count 277 10^3/uL (140-450) Mean Platelet Volume 9.3 fL (6.9-10.8) Neutrophils (%) (Auto) 77.6 % (37.0-80.0) Lymphocytes (%) (Auto) 19.5 % (10.0-50.0) Monocytes (%) (Auto) 2.0 % (0.0-12.0) Eosinophils (%) (Auto) 0.3 % (0.0-7.0) Basophils (%) (Auto) 0.6 % (0.0-2.0) Neutrophils # (Auto) 3.4 10 ^3/uL (1.6-8.6) Lymphocytes # (Auto) 0.8 10 ^3/uL (0.4-5.4) Monocytes # (Auto) 0.1 10 ^3/uL (0-1.3) Eosinophils # (Auto) 0 10 ^3/uL (0-0.8) Basophils # (Auto) 0 10 ^3/uL (0-0.2) Nucleated Red Blood Cells 0.1 % Sodium Level 136 mmol/L (136-145) Potassium Level 4.4 mmol/L (3.5-5.1) Chloride Level 102 mmol/L (98-107) Carbon Dioxide Level 23 mmol/L (20-31) Anion Gap 11 (5-15) Blood Urea Nitrogen 8 mg/dL (9-23) Creatinine 0.65 mg/dL (0.550-1.02) Glomerular Filtration Rate Calc 93 mL/min (>90) BUN/Creatinine Ratio 12.3 (10.0-20.0) Serum Glucose 125 mg/dL (74-106) Calcium Level 9.7 mg/dL (8.7-10.4) Total Bilirubin 0.5 mg/dL (0.2-1.0) Aspartate Amino Transferase (AST) 14 U/L (13-40) Alanine Aminotransferase (ALT) 18 U/L (7-40) Alkaline Phosphatase 98 U/L (46-116) Total Protein 7.3 g/dL (5.7-8.2) Albumin 4.6 g/dL (3.2-4.8) Other Laboratory Tests 07/14/25 06:02 Brief Hx & Hospital Course: 70-year-old female came with chief complaint of left facial numbness and droop for 1 week She was seen by her PCP yesterday was sent here for further evaluation to rule out CVA She says the symptoms are resolving now Evaluation including MRI of the brain which was negative Carotid Doppler was also normal Her symptoms are very minimal now She is still has some numbness and tingling on the left side of the face and very minimal subtle left facial droop on examination Vital signs are stable Discharged home Prednisone 10 mg daily for 5 days Follow up with her primary care physician as soon as possible Resume the home medications Condition at Discharge: Stable Final Diagnosis/Problems List Landrum palsy Discharge Disposition: Home SNF Discharge Will this Physician continue t: No Discharge Instruct/Medications Diet: Cardiac 2g Na,low cholest Activity: No Restrictions, As Tolerated Follow Up/Referral: PCP in 1 week Medications: Prednisone 10 mg daily for 5 days Scheduled Krill Oil ([place]-3 500 mg), 1,000 MG PO DAILY, (Reported) Levofloxacin Hemihydrate (Levaquin 500 Mg), 500 MG PO DAILY Metronidazole (Flagyl), 500 MG PO TID Montelukast Sodium (Montelukast Sodium), 1 TAB PO HS, (Reported) Ondansetron Odt 4MG Tab (Zofran Po), 4 MG PO PRN, (Reported) Prednisone (Prednisone), 10 MG PO DAILY Yeast (S. Boulardii)(S. Cerevi (Probiotic), 250 MG PO BID Miscellaneous Medications Albuterol Sulfate (Albuterol Sulfate), Unknown Dose INH, (Reported) Biotin (Vitamin H) (Biotin), 500 MCG PO, (Reported) Cetirizine Hcl (Eq Allergy Relief), 10 MG PO, (Reported) Cyanocobalamin (B12), 2,500 MCG PO, (Reported) Discharge Statement: "Patient was advised to return to the ER or call 911 if any headaches, dizziness, shortness of breath, chest pain, abdominal pain, bleeding, fevers, or worsening of medical condition. Patient was counseled about treatment plan, medications, possible side effects, patientverbalized understanding. All questions were answered to the best of my ability. This discharge took greater then 30 minutes in planning, reviewing documentation, counseling the patient, and discussing with other team members." ASSESSMENT ASSESSMENT Assessment Landrum palsy Date of Service: Jul 14, 2025 Billing Provider: RAD COOPER MD Common Visit Codes: 43055-QDL/OBS DISCH DAY >30min RAD COOPER MD Jul 14, 2025 11:05
[2025-07-14 13:00] VITALS: BP 144/81; PULSE 84; RESP 17; TEMP 97.6; O2SAT 99
[2025-07-14] MEDS ORDERED: ATORVASTATIN 20 MG TAB PO SCH (22:00)
--- NOTE | 2025-07-15 01:54 | DVHSR ---
APPROVED REPORT EXAM: Two-dimensional and M-mode echocardiogram with Doppler and color Doppler. Blood Pressure: 131/67 mmHg INDICATION CVA/TIA: RISK FACTORS Height: 5'2", Weight: 167 DIMENSIONS LVDd 5.0 (3.8-5.7cm) LA (2D) 3.5 (1.9-4.0cm) Aortic Root 3.3 (2.0-3.7cm) LVDs 2.8 (2.5-4.0cm) LA (MM) (1.9-4.0cm) Aortic Cusp Exc 1.7 (1.5-2.0cm) EF (%) 74.0 (55-70%) Rt. Atrium 3.8 (1.9-4.0cm) Asc. Aorta cm IVSd 0.9 (0.7-1.1cm) RV (D) 3.6 (1.8-2.4cm) PWd 1.2 (0.7-1.1cm) Mitral Valve Mitral Mitral Stenosis E wave 0.81m/s MV Mean GR. mmHg A wave 1.19m/s MV Peak GR. mmHg E/A ratio 0.7 2D MVA cm2 DECEL Time 310ms PRESS 1/2 Time ms Aortic Valve Aortic Valve Aortic Stenosis V1 1.05m/s AO Mean GR. 7mmHg V2 1.81m/s AO Peak GR. 13mmHg LVOT Diameter 2.1 (1.8-2.4cm) Doppler YESENIA 2.01cm2 Pulmonic Valve V2 0.95m/s Other Information Quality : Technically Limited Rhythm : Technically limited study due to body habitus. Conclusion LV EF IS 70% NORMAL VALVES NORMAL RV FUNCTION NO EFFUSION
== END 2025-07-14 15:30 | disposition home or self-care (01) | DRG 66 ==
LOC: TELE-CENTR 17:06
PROVIDERS: ADMIT Internal Medicine Geriatric Medicine; ATTEND Internal Medicine Geriatric Medicine
DX: I63.9 Cerebral infarction, unspecified (principal); E78.5 Hyperlipidemia, unspecified; I10 Essential (primary) hypertension; J45.909 Unspecified asthma, uncomplicated; G51.0 Bell's palsy; Z79.82 Long term (current) use of aspirin; Z82.49 Family history of ischemic heart disease and other diseases of the circulatory system; Z83.3 Family history of diabetes mellitus; Z86.16 Personal history of COVID-19
CPT/HCPCS: 36415; 70551; 80053; 85025; 93306; 93886; G0378